=== PATIENT | male | born 1995 | race Asian ===

== ENCOUNTER 2017-01-02 09:14 | Inpatient (IN) | payer OTHER ==
[~2017-01-02] VITALS: Ht 167.6 cm; Wt 59.5 kg
[2017-01-02 10:01] LABS: MEAN CORPUSCULAR HEMOGLOBIN 27.7 pg (27.0-33.0); MEAN CORPUSCULAR HGB CONC 32.6 g/dl (32.0-36.5); MEAN CORPUSCULAR VOLUME 84.9 fl (80.0-96.0); RED CELL DISTRIBUTION WIDTH 13.3 % (11.5-14.5); WHITE BLOOD COUNT 5.6 K/mm3 (4.0-10.0)
[2017-01-02 10:41] LABS: ALBUMIN 4.2 GM/DL (3.2-5.2); ALKALINE PHOSPHATASE 64 U/L (45-117); ALT/SGPT 27 U/L (12-78); ANION GAP 9 MEQ/L (8-16); AST/SGOT 42 U/L (15-37); BILIRUBIN,DIRECT 0.3 MG/DL (0.0-0.2); BILIRUBIN,TOTAL 1.1 MG/DL (0.2-1.0); BLOOD UREA NITROGEN 13 MG/DL (7-18); CALCIUM LEVEL 8.9 MG/DL (8.5-10.1); CARBON DIOXIDE LEVEL 27 MEQ/L (21-32); CHLORIDE LEVEL 105 MEQ/L (98-107); CREATININE FOR GFR 1.04 MG/DL (0.70-1.30); GLUCOSE, FASTING 98 MG/DL (70-105); POTASSIUM SERUM 3.8 MEQ/L (3.5-5.1); SODIUM LEVEL 141 MEQ/L (136-145); TOTAL PROTEIN 7.7 GM/DL (6.4-8.2)
[2017-01-02 11:10] LABS: METHADONE URINE NEGATIVE (NEGATIVE)
[2017-01-02 17:59] VITALS: BP 114/77
[2017-01-02] MEDS ORDERED: MOM 30ML SUSPENSION UDC PO PRN (18:45)
[2017-01-02] MEDS ORDERED: MAALOX 30 ML SUSP *UDC PO PRN (18:45)
[2017-01-02] MEDS ORDERED: ACETAMINOPHEN TAB 650MG DOSE (2X325MG) PO PRN (18:45)
[2017-01-02] MEDS ORDERED: traZODone 50 MG TAB PO PRN (18:45)
[2017-01-03 06:55] VITALS: BP 119/77
--- NOTE | 2017-01-03 09:29 | HPEPDOC ---
Medical History and Physical Date of Admission January 02, 2017 at 16:50 History and Physical PCP: [facility] ATTENDING: Dr. Chon Patel HPI: 21yoM admitted to [facility] for unspecified depressive disorder, being medically examined today. No acute medical complaints today. Denies any fevers, chills, weakness, fatigue, WEBB, CP, SOB, cough, palpitations, abdominal pain, N/V /D or changes in bowel or bladder habits. PMHx: Depression PSHX: Denies SOCHX: Resides in: [place], from [place] Marital Status: Single Kids: None Employment: Active duty Tobacco use: Denies ETOH: Denies Illicit Drugs: Denies IV Drug Use: Denies Tattoos done unprofessionally: Denies FAMHX: Mother: Alive, unknown Father: Alive, unknown Siblings: 5 brothers, one sister Alive, well Children: None Unexpected deaths due to medical reasons: None. ROS: As noted in HPI, otherwise 11pt ROS of systems reviewed and unremarkable. PE: GEN: 21 yo M, appears stated age. Well-nourished, well developed. No acute distress. Alert and oriented x 3. Pleasant, interactive. HEENT: Normocephalic, atraumatic. Pupils are equal, round, and reactive to light. Extraocular movements are intact. No nystagmus appreciated. Sclera are nonicteric. Conjunctiva without injection. Nose midline. Nasal turbinates without bogginess. EACs both patent BL. TMs both visualized and bond with good cone of light, no bulging or erythema. No facial asymmetry. Moist mucous membranes. Dentition fair. Pharynx pink and moist, no cobblestoning. Neck supple , trachea midline. No lymphadenopathy or thyromegaly appreciated. CHEST: Regular rate and rhythm, +S1, +S2 LUNGS: Clear to auscultation bilaterally. No wheezes, rales, or rhonchi. Breathing appears symmetric and easy. Patient is speaking in full sentences. No accessory muscle use. ABD: Round, soft, non-tender, non-distended. +Bowel sounds throughout. No rebound or guarding. No costovertebral angle tenderness. EXT: Pulses 2+ bilaterally dorsalis pedis and radial. No lower extremity edema appreciated. SKIN: [place], dry, warm. Capillary refill <2sec. excoriation is noted left upper arm with scattered papules. No erythema. No drainage. NEURO: Alert and oriented x 3. Cranial nerves III-XII are intact. No focal deficits appreciated. EKG: Pending. A&P: 21yoM admitted to [facility] for unspecified depressive disorder 1. Psych. Plan per Psychiatry. Obtain baseline EKG to assure the safety of psychiatric medications as they can prolong the QT interval. 2. Elevated LFT. Recheck CMP. Check hepatitis profile. 3. Dermatitis left upper extremity. Patient states he had been applying Calamine. He had rash on the right upper extremity which is resolved. He states it is resolving on the left upper extremity as well. He declines any treatment at this time stating symptoms are resolving. 4. Follow up with PCP on discharge. 5. Staff member Chris present throughout exam. Vital Signs Vital Signs Date Time Temp Pulse Resp B/P (MAP) Pulse Ox O2 Delivery O2 Flow Rate FiO2 01/03/17 06:55 98.8 72 18 119/77 (91) 01/02/17 17:59 99 Room Air Laboratory Data Labs 24H Laboratory Tests 2 01/02/17 09:45: Urine Amphetamines Screen NEGATIVE, Urine Benzodiazepines Screen NEGATIVE, Urine Opiates Screen NEGATIVE, Urine Methadone Screen NEGATIVE, Urine Barbiturates Screen NEGATIVE, Urine Phencyclidine Screen NEGATIVE, Urine Cocaine Metabolite Screen NEGATIVE, Urine Cannabinoids Screen NEGATIVE 01/02/17 09:46: Anion Gap 9, Calcium Level 8.9, Aspartate Amino Transf (AST/SGOT) 42H, Alanine Aminotransferase (ALT/SGPT) 27, Alkaline Phosphatase 64, Total Bilirubin 1.1H, Direct Bilirubin 0.3H, Total Protein 7.7, Albumin 4.2, Albumin/Globulin Ratio 1.20, Thyroid Stimulating Hormone (TSH) 1.250, Salicylates Level < 1.7L, Acetaminophen Level < 2.0L, Ethyl Alcohol Level < 0.003 CBC/BMP Laboratory Tests 01/02/17 09:46 Red Blood Count 4.78, Mean Corpuscular Volume 84.9, Mean Corpuscular Hemoglobin 27.7, Mean Corpuscular Hemoglobin Concent 32.6, Red Cell Distribution Width 13.3 Home Medications No Active Prescriptions or Reported Meds Allergies Coded Allergies: No Known Allergies (Unverified , 01/02/17) Marzena Calle January 03, 2017 09:29
--- NOTE | 2017-01-03 13:08 | MHHPE ---
DATE OF ADMISSION: 01/02/2017 LEGAL STATUS AT ADMISSION: 9.39 legal status. CHIEF COMPLAINT: "I am afraid I can kill myself". 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 According to the records, the patient was texting his peers at [place] that he was having suicidal thoughts. They were concerned. The contacted the [facility] and he was brought for an evaluation. During his evaluation at the emergency department (ED), the patient was saying "It is hard to describe. It is one voice telling me to kill myself and another telling me not to". The patient was experiencing these auditory hallucinations and "conflicting thoughts". He stated that he has been feeling depressed with poor sleep, poor energy and suicidal ideation. He also stated during his ED admission that he completed his basic training in April and arrived to [place] in May. He said that he was experiencing symptoms of depression during basic training, but he felt better and now has been feeling worse for several days. He was unable to contract for safety and he was afraid he could end up harming himself. During the interview today in the unit, the patient repeats the above. The patient reports high stress, mostly having to do with "catching up with other people" and worried about his performance and what other people will think about him. The patient says that he gets along well with other peers and has no problem with the chain of command. He stated that he has been sleeping 3 to 5 hours a day and that he has not been able to fall asleep. He says that his energy fluctuates, but feels very tired for a few days. His appetite is good and he has normal self esteem. Exploring the above auditory hallucinations and suicidal thoughts and apparently that can be explained by the fact that the patient has been sleep deprived. The patient said that on these voices/strong thoughts were very strong. He had to play music to distract himself, but the voices/thoughts were coming back. He was very confused, afraid that he may lose control and end up killing himself so that is when he decided to text his friends and come to the emergency department. This is the first time that the patient has experienced such symptoms. The patient never had any psychiatric problems or treatment before. The patient denies any use of drugs or alcohol and says that very rarely he will drink a beer. When exploring his depression during basic training, the patient says that in the 14 weeks that lasted he felt down and home sick for four days and more or less in the middle of the basic training, but then he recovered. He said that he had some problems sleeping at that time, but nothing like it is now. PAST MEDICAL HISTORY: The patient denies any acute medical problems. No known drug allergies. PAST PSYCHIATRIC HISTORY: As above, the patient has no prior history or treatment. This is his first admission to an inpatient psychiatric facility. FAMILY HISTORY: The patient denies any family member having psychiatric problems or substance abuse. SUBSTANCE ABUSE HISTORY: The patient denies any current or past problems with drugs or alcohol. SOCIAL HISTORY: The patient was born and raised in [place] where his family is, his parents, four sisters and one brother. He was raised by them. He reports a completely normal happy childhood with no abuse or neglect. The patient reports school as completely normal. He had good grades. The patient had no problems making friends or socializing. He is the type of person that will have a few good friends. He finished high school and joined the [employer]. The patient reports that he likes it, that he is getting along well and has no problems with the chain of command. 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 REVIEW OF SYSTEMS: CONSTITUTIONAL: No weight loss, fevers, chills, weakness or fatigue. HEENT: No visual loss, blurry vision, double vision or yellow sclerae. No hearing loss, nasal congestion, runny nose or sore throat. SKIN: No rash or itching. CARDIOVASCULAR: No chest pain, chest pressure, chest discomfort, palpitations or edema. RESPIRATORY: No shortness of breath, cough or sputum. GI: No anorexia, nausea, vomiting or diarrhea. No abdominal pain. No blood. : No burning or pain on urination. NEUROLOGICAL: No headache, dizziness, syncope, paralysis, ataxia, numbness or tingling. MUSCULOSKELETAL: No muscle, back pain, joint pain or stiffness. HEMATOLOGIC: No anemia, bleeding or bruising. LYMPHATICS: No history of splenectomy. ENDOCRINOLOGIC: No reports of sweating, cold or heat intolerance. No polyuria or polydipsia. ALLERGIES: No history of asthma, hives, eczema or rhinitis. PHYSICAL EXAMINATION: As per physician conservation assistant. LABS AT ADMISSION: CBC is unremarkable except hemoglobin of 13.2 and hematocrit of 40.6. BMP is within normal limits except AST of 42. Urine drug screen (UDS) negative. Blood alcohol level is negative. MENTAL STATUS EXAMINATION: The patient is dressed in [facility]. The patient is calm and cooperative. His speech is soft and monotone. He has fair eye contact. Mood is anxious and depressed. Affect is restricted. The patient is oriented to time, place, person and situation. Maintains attention and concentration correctly. Instant recall, recent and remote memory are intact. Thought processes are coherent, logical and goal directed. The patient does not have auditory or visual hallucinations, although he reported auditory hallucinations during his evaluation at the ED. He does not have paranoid, persecutory, somatic, grandiose or jainism delusions. The patient is denying suicidal or homicidal ideation during the interview, but patient had suicidal thoughts and was afraid that he would end up harming himself before admission. Judgment and insight are limited. DIAGNOSES: [place] I: Adjustment disorder with depressed and anxious mood. Rule out major depressive disorder. [place] II: Deferred. [place] III: None acute. INITIAL TREATMENT PLAN: The patient was admitted on a 9.39 legal status. Complete history was obtained. With his permission, family will be contacted and database will be expanded. His medications regimen will be reviewed and changed accordingly. He will be provided with protected environment. He will be treated with individual, group and milieu therapy. He will also receive supportive psychoeducation. Discharge planning will commence immediately. Length of stay will be between 5-7 days. Outpatient followup will be strongly recommended. The treatment plan will focus initially on depression and risk for suicide.
--- NOTE | 2017-01-03 17:15 | ECGEPIP ---
Stationary ECG Study [facility] Test Date: 2017-01-03 Pat Name: MANOJ GAITAN Department: Room: [place] [address] Gender: M Adhesive Primer: MERRY : 1995 Requested By: Marzena Calle Order Number: [id number] Reading MD: Karina Moore Measurements Intervals [place] Rate: 44 P: 56 SC: 132 QRS: 89 QRSD: 86 T: 54 QT: 445 QTc: 384 Interpretive Statements SINUS BRADYCARDIA ST ELEVATION, PROBABLY EARLY REPOLARIZATION U WAVES NO PRIOR Electronically Signed On 01-03-2017 17:14:56 EDT by Karina Moore
[2017-01-03 18:12] VITALS: BP 108/68
[2017-01-04 06:04] VITALS: BP 113/74
[2017-01-04 07:24] LABS: ALBUMIN 3.8 GM/DL (3.2-5.2); ALBUMIN/GLOBULIN RATIO 1.12 (1.00-1.93); ALKALINE PHOSPHATASE 65 U/L (45-117); ALT/SGPT 21 U/L (12-78); ANION GAP 5 MEQ/L (8-16); AST/SGOT 17 U/L (15-37); BILIRUBIN,TOTAL 0.7 MG/DL (0.2-1.0); BLOOD UREA NITROGEN 12 MG/DL (7-18); CALCIUM LEVEL 8.7 MG/DL (8.5-10.1); CARBON DIOXIDE LEVEL 32 MEQ/L (21-32); CHLORIDE LEVEL 103 MEQ/L (98-107); CREATININE FOR GFR 1.02 MG/DL (0.70-1.30); GLUCOSE, FASTING 92 MG/DL (70-105); SODIUM LEVEL 140 MEQ/L (136-145); TOTAL PROTEIN 7.2 GM/DL (6.4-8.2)
[2017-01-04 07:43] LABS: POTASSIUM SERUM 4.9 MEQ/L (3.5-5.1)
[2017-01-04 14:59] LABS: TOTAL IRON BINDING CAPACITY 295 UG/DL (250-450)
[2017-01-04 18:12] VITALS: BP 108/59
--- NOTE | 2017-01-04 22:23 | MHIPNPDOC ---
[facility] Progress Note Progress Note DATE OF SERVICE: 01/04/17 INTERVAL HISTORY: Medication Side effects: reports no side effects from the trazodone Behavior/events: has been social with other patients, ramey noted times be somewhat reclusive. Group Attendance: has attended groups intermittently Psychiatric Symptoms: reports his sleep has been improved as well as his mood since being admitted. He describes that his anxiety and depression have improved as well with the treatment of his sleeping problems. He has no complaints today. VITAL SIGNS: See below. NEW TEST RESULTS: See below CURRENT MEDICATIONS: See below. MENTAL STATUS EXAMINATION: General: Well dressed with good hygiene Speech: Spontaneous and fluid Thought processes: Linear and logical Thought content: future orientated Abstract reasoning, and computation: Intact Description of associations: Intact Description of abnormal or psychotic thoughts:Denies any suicidal or homicidal ideation. Denies any auditory or visual hallucinations. Does not appear to be responding to internal stimuli. Does not appear to be endorsing any bizarre or paranoid ideation. Judgment: fair [place] #HT: poor Orientation: Alert and orientated 3 Recent and remote memory: Intact Attention span and concentration: Intact Fund of knowledge: Adequate Mood: "fine" Affect: mildly dysthymic with a constricted range DIAGNOSES: 1. Unspecified depressive disorder. 2. Insomnia. ASSESSMENT: improving MANAGEMENT PLAN: Medications: continue trazodone at this time the patient is not interested in trying any anti-depressants Psychotherapy: encouraged group therapy Social: none Misc: none Disposition: The patient will need of further inpatient stay to address medication titration and disposition needs. TIME SPENT: 15 minutes. Vital Signs Vital Signs Date Time Temp Pulse Resp B/P (MAP) Pulse Ox O2 Delivery O2 Flow Rate FiO2 01/04/17 18:12 98.8 66 16 108/59 (75) 01/04/17 06:04 Room Air 01/02/17 17:59 99 Laboratory Data 24H Labs Laboratory Tests 2 01/04/17 06:18: Anion Gap 5L, Blood Urea Nitrogen 12, Creatinine 1.02, Sodium Level 140, Potassium Level 4.9#, Chloride Level 103, Carbon Dioxide Level 32, Calcium Level 8.7, Aspartate Amino Transf (AST/SGOT) 17, Alanine Aminotransferase (ALT/ SGPT) 21, Alkaline Phosphatase 65, Total Bilirubin 0.7, Total Protein 7.2, Albumin 3.8, Iron Level 56L, Total Iron Binding Capacity 295, Transferrin % Saturation 19.0L, Albumin/Globulin Ratio 1.12 CBC/BMP Laboratory Tests 01/04/17 06:18 Calcium Level 8.7, Aspartate Amino Transf (AST/SGOT) 17, Alanine Aminotransferase (ALT/SGPT) 21, Alkaline Phosphatase 65, Total Bilirubin 0.7, Total Protein 7.2, Albumin 3.8 Current Medications Current Medications Acetaminophen (Tylenol Tab) 650 mg Q6HP PRN PO HEADACHE or DISCOMFORT; Start at 18:45; Stop 02/01/17 at 18:44 Al Hydrox/Mg Hydrox/Simethicone (Mylanta) 30 ml Q4HP PRN PO HEARTBURN/ INDIGESTION; Start 01/02/17 at 18:45; Stop 02/01/17 at 18:44 Home Med (Med Rec Complete!) ASDIRECTED XX ; Start 01/02/17 at 17:15; Stop at 17:15; Status DC Magnesium Hydroxide (Milk Of Magnesia) 30 ml DAILYPRN PRN PO CONSTIPATION; Start 01/02/17 at 18:45; Stop 02/01/17 at 18:44 Trazodone HCl (Desyrel) 50 mg QHSP PRN PO INSOMNIA; Start 01/02/17 at 18:45; Stop 02/01/17 at 18:44 Allergies Coded Allergies: No Known Allergies (Unverified , 01/02/17) GME ATTESTATION My preceptor for this patient encounter was physically present in the building during the encounter and was fully available. As needed, all aspects of the patient interview, examination, medical decision making process, and medical care plan development were reviewed and approved by the preceptor. Preceptor is aware and concurs with the plan as stated in the body of this note and will attest to such by his/her cosignature. TANGELA KENT DO January 04, 2017 22:23
[2017-01-05 06:17] VITALS: BP 113/64
[2017-01-05 18:00] VITALS: BP 105/60
[2017-01-06 06:28] VITALS: BP 116/58
[2017-01-06] MEDS: DOCUSATE SODIUM 100 MG CAP PO SCH (09:05)
[2017-01-06] MEDS: FERROUS SULFATE 325MG TAB PO SCH (09:05)
--- NOTE | 2017-01-06 15:42 | IPN ---
DATE: 01/06/2017 21-year-old male admitted for depression and suicidal ideation. SUBJECTIVE: "I am feeling a lot better." OBJECTIVE: The patient is significantly improved. The patient is no longer experiencing auditory hallucinations/strong thoughts. The patient is able to contract for safety. Has been interacting well with other peers and staff. The patient is sleeping well without the need of medication. MENTAL STATUS EXAM: The patient is dressed in [facility]. The patient is calm and cooperative. Speech is clear, coherent, with normal rate and is spontaneous. Has good eye contact. Mood is euthymic. Affect is congruent with mood. No evidence of delusions or hallucinations. Memory, attention and concentration are fair. The patient denies suicidal or homicidal ideation. Insight and judgment is fair. ASSESSMENT: Adjustment disorder with anxious and depressed mood. PLAN: The patient has improved significantly since admission. The patient is not taking medications. Discharge planning has started. Will schedule a chain of command meeting for tomorrow and discharge after the chain of command meeting.
[2017-01-06 18:00] VITALS: BP 129/58
[2017-01-06] MEDS ORDERED: traZODone 25MG PER 1/2 TABLET PO SCH (21:00)
[2017-01-07 06:46] VITALS: BP 104/59
[2017-01-07] MEDS: DOCUSATE SODIUM 100 MG CAP PO SCH (08:42)
[2017-01-07] MEDS: FERROUS SULFATE 325MG TAB PO SCH (08:42)
[2017-01-07] MEDS ORDERED: TRAZ25TA GT (09:08)
--- NOTE | 2017-01-08 06:04 | MHDS ---
DATE OF ADMISSION: 01/02/2017 DATE OF DISCHARGE: 01/07/2017 LEGAL STATUS AT ADMISSION: 939 legal status. 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 According to the records, the patient was texting his peers at [place] and telling them he was having suicidal thoughts. They were concerned. They contacted the police (MPs) and he was brought for an evaluation. During his evaluation at the emergency department (ED), the patient was saying "It is hard to describe. It is one voice telling me to kill myself and another telling me not to." The patient was experiencing these auditory hallucinations/"conflicting thoughts". He stated that he has been feeling depressed with poor sleep, poor energy and suicidal thoughts. He also stated during his ED admission that he completed his basic training in April and he arrived to [place] in May. He said that he was experiencing symptoms of depression during basic training, but he felt better and now, he seems to feel worse for several days. He was unable to contract for safety and he was afraid he could end up harming himself. During the interview today, the patient repeated the above. The patient reports high stress, mostly having to do with "catching up with other people" and worried about his performance and what other people will think about him. The patient says that he gets along well with other peers and has no problem with the chain of command. He stated that he has been sleeping 3-5 hours a night and that has not been able to fall asleep. He says that his energy fluctuates, feels very tired. His appetite is good. His self esteem is normal. Exploring the above auditory hallucinations and suicidal thoughts, it appears that could be related to sleep deprivation. The patient said that on these voices were strong, but he is not sure if there were two voices or strong thoughts. He was very confused, afraid that he may lose control and end up killing himself, so that is when he decided to text his friends and come to the ED. This is the first time that he has experienced such symptoms. The patient never had any psychiatric problems in the past. The patient denies any use of drugs or alcohol. When exploring his depression during basic training, the patient says that in 14 weeks that they lasted, he felt down and home sick for four days around the middle of the basic training, but then he recovered. He said that he had some problems sleeping at that time, but nothing like it is now. LABS AT ADMISSION: CBC showed a hemoglobin of 13.2 and hematocrit of 40.6, the rest within normal limits. CMP was unremarkable except total bilirubin of 1.1 and AST of 42. His Urine drug screen (UDS) negative. Blood alcohol level is negative. HOSPITAL COURSE: After the first evaluation, and given the fact that his symptoms are probably compatible with sleep deprivation. It was decided to observe the patient and only start trazodone 25 mg at bedtime for insomnia. He did not have to take the medication because he was sleeping fine. He felt that his mood was stable. He was able to sleep. His appetite was good. He was interacting with the patients well. He was able to smile. There was no evidence of psychomotor retardation. His affect was bright, so he felt he could return home by 01/07/2017. No evidence of auditory or visual hallucinations, delusions, suicidal or homicidal ideations. MENTAL STATUS EXAMINATION: The patient is dressed in casual clothes. The patient is calm and cooperative. The patient's speech is clear, coherent with normal rate and spontaneous. Has good eye contact. Mood is euthymic. Affect is appropriate and congruent with mood. The patient is oriented to time, place, person and situation. Maintains attention and concentration correctly. Instant recall, recent and remote memory are intact. Thought processes are coherent, logical and goal directed. The patient does not have auditory or visual hallucinations. The patient does not have paranoid, persecutory, somatic, grandiose or uatsdin delusions. The patient is denying suicidal or homicidal ideation. Judgment and insight are fair. DISCHARGE DIAGNOSES: [place] I: Adjustment disorder with depressed and anxious mood. Insomnia. [place] II: Deferred. [place] III: None acute. INSTRUCTIONS TO THE PATIENT: The patient is to continue taking his medication as prescribed and followup appointments. He is advised to maintain absolute sobriety from drugs and alcohol. The patient has scheduled appointment for psychotropic medication management, individual psychotherapy and primary care physician.
== END 2017-01-07 10:37 | disposition home or self-care (01) | DRG 882 ==
LOC: M ED 10:01 → M ED INP 16:50 → M PSY 17:57
PROVIDERS: ADMIT Psychiatry & Neurology Psychiatry; ATTEND Psychiatry & Neurology Psychiatry
DX: F43.23 Adjustment disorder with mixed anxiety and depressed mood (principal); G47.00 Insomnia, unspecified

== ENCOUNTER 2017-04-23 22:37 | Emergency (ER) | payer OTHER ==
[~2017-04-23] VITALS: Ht 167.6 cm; Wt 69.9 kg
[~2017-04-23 22:37] MED LIST: TRAZ25TA GT
--- NOTE | 2017-04-23 23:50 | REPUSA ---
Clinical history: Pain. Findings: Real-time ultrasound imaging of the testicles and scrotum was performed. The right testicle measures 3.8 x 2.4 x 2.4 cm. The left testicle measures 3.5 x 2.4 x 2.5 cm. The testicles demonstrat e normal echo texture and echogenicity. Small bilateral epididymal cysts are noted, measuring up to 6 mm. Normal color Doppler flow and arterial waveforms are seen bilaterally. There are trace bilateral hydroceles. Diffuse thickening and edema of the scrotal wall is noted. Impression: 1. Unremarkable ultrasound examination of the testicles. 2. Bilateral epididymal cyst. 3. Trace bilateral hydroceles. 4. Extensive diffuse thickening and edema of the scrotal wall bilaterally. This is a nonspecific find ing, but could be secondary to inflammatory changes. Follow-up is recommended as clinically indicated .
[2017-04-24 00:30] VITALS: BP 114/67
== END 2017-04-24 00:41 | disposition home or self-care (01) ==
LOC: M ED 22:37
DX: N50.89 Other specified disorders of the male genital organs (principal); Z79.899 Other long term (current) drug therapy; F17.210 Nicotine dependence, cigarettes, uncomplicated

== ENCOUNTER 2017-04-27 14:13 | Inpatient (IN) | payer OTHER ==
[~2017-04-27] VITALS: Ht 167.6 cm; Wt 72.0 kg
--- NOTE | 2017-04-27 16:19 | REP ---
Clinical: Chest pain. Edema . Comparison: None . Technique: PA and lateral. Findings: The mediastinum and cardiac silhouette are normal. The lung fu are clear and without acute consolidation, effusion, or pneumothorax. The skeletal structures are intact and normal. Impression: 1. No acute cardiopulmonary process. Signed by Chintan Fonseca MD 04/27/2017 04:10 P
[2017-04-27 16:24] LABS: BASO % 0.6 % (0.0-1.0); EOS # 0.1 K/mm3 (0.0-0.50); EOS % 1.5 % (0.0-3.0); LARGE UNSTAINED CELL # 0.1 K/mm3 (0.0-0.4); LARGE UNSTAINED CELL % 1.9 % (0.0-4.0); LYMPH # 2.6 K/mm3 (1.5-6.5); LYMPH % 33.2 % (24.0-44.0); MEAN CORPUSCULAR HEMOGLOBIN 27.8 pg (27.0-33.0); MEAN CORPUSCULAR HGB CONC 31.9 g/dl (32.0-36.5); MEAN CORPUSCULAR VOLUME 87.2 fl (80.0-96.0); MONO # 0.3 K/mm3 (0.0-0.8); MONO % 3.9 % (0.0-5.0); NEUTROPHILS # 4.3 K/mm3 (1.8-7.7); NEUTROPHILS % 58.8 % (36.0-66.0); PLATELET COUNT, AUTOMATED 325 k/mm3 (150-450); RED CELL DISTRIBUTION WIDTH 13.4 % (11.5-14.5); WHITE BLOOD COUNT 7.3 K/mm3 (4.0-10.0)
[2017-04-27 16:40] LABS: ERYTHROCYTE SEDIMENTATION RATE 23 mm/hr (0-15)
[2017-04-27 16:47] LABS: ALBUMIN 0.7 GM/DL (3.2-5.2); ALBUMIN/GLOBULIN RATIO 0.18 (1.00-1.93); ALKALINE PHOSPHATASE 66 U/L (45-117); ALT/SGPT 26 U/L (12-78); ANION GAP 5 MEQ/L (8-16); AST/SGOT 38 U/L (15-37); BILIRUBIN,TOTAL 0.2 MG/DL (0.2-1.0); BLOOD UREA NITROGEN 17 MG/DL (7-18); CALCIUM LEVEL 7.7 MG/DL (8.5-10.1); CARBON DIOXIDE LEVEL 32 MEQ/L (21-32); CHLORIDE LEVEL 106 MEQ/L (98-107); CREATININE FOR GFR 1.19 MG/DL (0.70-1.30); GLUCOSE, FASTING 89 MG/DL (70-105); POTASSIUM SERUM 3.8 MEQ/L (3.5-5.1); SODIUM LEVEL 143 MEQ/L (136-145); TOTAL PROTEIN 4.7 GM/DL (6.4-8.2)
[2017-04-27] MEDS ORDERED: ISOVUE-370 76% 100ML VIAL (Q9967) As Ordered ONE (17:21)
[2017-04-27 17:41] LABS: INR 0.94
--- NOTE | 2017-04-27 17:55 | REP ---
Clinical: Edema and hypoalbuminemia. Technique: Axial contrast enhanced images from the lung bases to the pubic symphysis using 100 ml Isovue 370 intravenous contrast material with coronal and sagittal re-formations. Findings: Lung bases demonstrate small left pleural effusion. Mild to moderate diffuse subcutaneous edema is noted throughout the abdomen and pelvis as well as small to moderate amount of ascites extending to the pelvis. Liver, spleen, pancreas, gallbladder, bilateral adrenal glands and kidneys are normal. The enteric system is without obstruction or acute inflammatory process. Mural edematous changes through the ascending and transverse colon is also consistent with a history of hypoalbuminemia and less likely reflects colitis although correlation may be warranted. Abdominal aorta and vasculature appears normal. No free air. No significant adenopathy. Musculoskeletal structures are intact. Impression: 1. Moderate ascites, small left pleural effusion, and my up to moderate anasarca as well as mural edema to the colon is consistent with a history of hypoalbuminemia. 2. No further acute abdominopelvic pathology is identified. Signed by Chintan Fonseca MD 04/27/2017 05:46 P
--- NOTE | 2017-04-27 18:27 | ECGEPIP ---
Stationary ECG Study [facility] - ED Test Date: 2017-04-27 Pat Name: MANOJ GAITAN Department: Room: - Gender: M Director Of Curriculum: percy : 1995 Requested By: SHAWN Ny PA-C Order Number: [id number] Reading MD: Romina Dixon Measurements Intervals [place] Rate: 57 P: 46 AR: 145 QRS: 93 QRSD: 88 T: 52 QT: 411 QTc: 401 Interpretive Statements SINUS BRADYCARDIA BORDERLINE RIGHT AXIS DEVIATION NONSPECIFIC ST ELEVATION, EARLY REPOLARIZATION INCREASED RATE 01/03/17 Electronically Signed On 04-27-2017 18:27:21 EDT by Romina Dxion
[2017-04-27] MEDS ORDERED: ACETAMINOPHEN TAB 650MG DOSE (2X325MG) PO PRN (20:00)
[2017-04-27] MEDS ORDERED: ONDANSETRON 4MG/2ML VIAL (J2405) IV PRN (20:00)
[2017-04-27 20:54] LABS: CHOLESTEROL LEVEL 570 MG/DL (<200); COMPLEMENT C3 152 MG/DL (90-180); TRIGLYCERIDES LEVEL 327 MG/DL (<150)
[2017-04-27] MEDS: FUROSEMIDE 20 MG/2 ML VIAL (J1940) IV SCH (20:56)
[2017-04-27] MEDS ORDERED: ENOXAPARIN 40 MG/0.4 ML SYRINGE (J1650) SC SCH (21:00)
--- NOTE | 2017-04-27 22:25 | HPEPDOC ---
Medical History and Physical Date of Admission 04/27/17 History and Physical PRIMARY CARE PROVIDER: [facility] ATTENDING: Dr. Farida Little CHIEF COMPLAINT: Swollen extremities HISTORY OF PRESENT ILLNESS: This is a 21-year-old male past medical history who presents complaining of swollen extremities. Patient states that he developed diarrhea on Friday through Friday, after which his genitalia started to become swollen on Friday, and has swelling progressed his legs on night. Patient denies any fevers or chills. No nausea/vomiting/abdominal pain. His diarrhea has subsided. He denies any cough/ sore throat/sick contacts/recent travels. The patient is sexually active with one partner over the long period of time. He denies any history of STDs. No history of hepatitis or HIV. Patient denies any chest pain/shortness of breath/palpitations. He is currently resting comfortably in bed. He also noted his genitalia becoming more edematous as well as his abdomen, and now his upper extremities. His genitalia are nontender. No dysuria or hematuria. PAST MEDICAL HISTORY: As per HPI PAST SURGICAL HISTORY: Tonsillectomy SOCIAL HISTORY: Smokes 1-2 cigarettes per week, denies alcohol or illicit drug use. FAMILY HISTORY: Denies family history of kidney disease/autoimmune disease. ALLERGIES: Please see below. REVIEW OF SYSTEMS: HEENT: Denies sore throat/headache CARDIOVASCULAR: Denies chest pain/palpitations RESPIRATORY: Denies shortness of breath/cough GASTROINTESTINAL: denies nausea/vomiting GENITOURINARY: Denies dysuria/urinary urgency. MUSCULOSKELETAL: Denies myalgias/arthralgias NEUROLOGICAL: Denies any focal weakness HOME MEDICATIONS: Please see below. PHYSICAL EXAMINATION: Vitals: (see below) General: No acute distress, laying comfortably in bed. HEENT: Moist mucous membranes. Neck: No JVD or lymphadenopathy Cardiac: RRR, No murmurs Pulm: Clear to auscultation b/l. No wheezing, rhonchi Abd: NT/ND + BS. Full appearing. Ext: 2+ pitting edema bilateral lower extremities. No cyanosis. Distal pulses intact. Genitalia edematous however nontender. No erythema. No fluctuance. LABORATORY DATA: See below. IMAGING: Chest x-ray on 04/27/17 with no acute pulmonary disease. CT abdomen and pelvis on 04/27/17 Impression: 1. Moderate ascites, small left pleural effusion, and my up to moderate anasarca as well as mural edema to the colon is consistent with a history of hypoalbuminemia. 2. No further acute abdominopelvic pathology is identified. MICROBIOLOGY: Please see below. ASSESSMENT/PLAN: 1. Nephrotic syndrome- ? Secondary to IgA nephropathy versus minimal change disease. We'll also start with workup to rule out autoimmune/hepatitis/HIV. SPEP and UPEP, RPR, cryoglobulin. UA with 3+ protein. Anasarca. Albumin 0.7. Lasix IV twice a day. ? Need for kidney biopsy. Nephrology consulted. 2. Anasarca- likely secondary to nephrotic syndrome. High risk for hypercoagulable state. Will rule out DVT with a Doppler ultrasound. 3. Hyperlipidemia- likely secondary to nephrotic syndrome. We'll start patient on statin. 4. Tobacco abuse- cessation counseling Due to prophylaxis- enoxaparin Patient was followed by Dr. Farida Little starting 04/28/17 at 7 AM. Vital Signs Vital Signs Date Time Temp Pulse Resp B/P (MAP) Pulse Ox O2 Delivery O2 Flow Rate FiO2 04/27/17 20:03 97.9 56 16 109/66 (80) 99 Room Air Laboratory Data Labs 24H Laboratory Tests 2 04/27/17 16:06: Prothrombin Time 12.7, Prothromb Time International Ratio 0.94, Activated Partial Thromboplast Time 39.0H, Estimated Mean Plasma Glucose 114H, Hemoglobin A1c 5.6 04/27/17 16:10: White Blood Count 7.3, Red Blood Count 5.88, Hemoglobin 16.3, Hematocrit 51.3, Mean Corpuscular Volume 87.2, Mean Corpuscular Hemoglobin 27.8, Mean Corpuscular Hemoglobin Concent 31.9L, Red Cell Distribution Width 13.4, Platelet Count 325, Neutrophils (%) (Auto) 58.8, Lymphocytes (%) (Auto) 33.2, Monocytes (%) (Auto) 3.9, Eosinophils (%) (Auto) 1.5, Basophils (%) (Auto) 0.6, Neutrophils # (Auto) 4.3, Lymphocytes # (Auto) 2.6, Monocytes # (Auto) 0.3, Eosinophils # (Auto) 0.1, Basophils # (Auto) 0.0, Large Unclassified Cells % 1.9 , Large Unclassified Cells # 0.1, Erythrocyte Sedimentation Rate 23H, Anion Gap 5L, Blood Urea Nitrogen 17, Creatinine 1.19, Sodium Level 143, Potassium Level 3.8, Chloride Level 106, Carbon Dioxide Level 32, Calcium Level 7.7L, Aspartate Amino Transf (AST/SGOT) 38H, Alanine Aminotransferase (ALT/SGPT) 26, Total Creatine Kinase 223, Alkaline Phosphatase 66, Total Bilirubin 0.2, Triglycerides Level 327H, LDL Cholesterol 411.6H, Total Protein 4.7L, Albumin 0.7L, C-Reactive Protein, Quantitative < 0.30, B-Type Natriuretic Peptide 8.3, Albumin/Globulin Ratio 0.18L, Total Cholesterol 570H, Non-HDL Cholesterol (LDL + VLDL) 477, Total HDL Cholesterol 93, Cholesterol/HDL Ratio 6.129H, Lipase 151 , Complement C3 152, Complement C4 38.0 04/27/17 17:36: Urine Appearance HAZY, Urine Color YELLOW, Urine pH 6.0, Urine Specific [place] 1.040, Urine Protein 3+H, Urine Glucose (UA) NEGATIVE, Urine Ketones NEGATIVE, Urine Urobilinogen 0.2, Urine Bilirubin NEGATIVE, Urine Leukocyte Esterase NEGATIVE, Urine Blood 1+H, Urine Nitrite NEGATIVE, Urine WBC (Auto) 6H, Urine RBC (Auto) 6H, Urine Hyaline Casts (Auto) 3, Urine Bacteria (Auto) NEGATIVE, Urine Squamous Epithelial Cells 0, Urine Mucus (Auto) MODERATE, Urine Sperm ( Auto) 04/27/17 21:03: CBC/BMP Laboratory Tests 04/27/17 16:10 Red Blood Count 5.88, Mean Corpuscular Volume 87.2, Mean Corpuscular Hemoglobin 27.8, Mean Corpuscular Hemoglobin Concent 31.9 L, Red Cell Distribution Width 13.4, Neutrophils (%) (Auto) 58.8, Lymphocytes (%) (Auto) 33.2, Monocytes (%) ( Auto) 3.9, Eosinophils (%) (Auto) 1.5, Basophils (%) (Auto) 0.6, Neutrophils # ( Auto) 4.3, Lymphocytes # (Auto) 2.6, Monocytes # (Auto) 0.3, Eosinophils # (Auto ) 0.1, Basophils # (Auto) 0.0, Calcium Level 7.7 L, Aspartate Amino Transf (AST/ SGOT) 38 H, Alanine Aminotransferase (ALT/SGPT) 26, Total Creatine Kinase 223, Alkaline Phosphatase 66, Total Bilirubin 0.2, Triglycerides Level 327 H, LDL Cholesterol 411.6 H, Total Protein 4.7 L, Albumin 0.7 L Home Medications No Active Prescriptions or Reported Meds Allergies Coded Allergies: No Known Allergies (Unverified , 04/27/17) BOGDAN GORDON MD Apr 27, 2017 22:25
[2017-04-27] MEDS ORDERED: ATORVASTATIN 20 MG TAB PO ONE (23:00)
[2017-04-28] VITALS: BP 106/67
--- NOTE | 2017-04-28 00:10 | REPUSA ---
CLINICAL HISTORY: Edema. COMMENTS: Real time sonography with duplex doppler of the extremities bilaterally was performed with attention to the major deep venous structures. Evaluation reveals the common femoral, superficial femoral and popliteal veins bilaterally to be comp letely compressible without intraluminal thrombus. There is normal spontaneous phasic flow and augmen tation in all deep veins. The greater saphenous/common femoral vein junctions are patent bilaterally. Soft tissue edema and swelling. IMPRESSION: No evidence of DVT in the lower extremities bilaterally. Thank you for your kind referral of this patient.
[2017-04-28 02:00] VITALS: BP 100/65
[2017-04-28 04:00] VITALS: BP 104/64
[2017-04-28 05:42] LABS: BASO % 0.8 % (0.0-1.0); EOS # 0.1 K/mm3 (0.0-0.50); EOS % 1.7 % (0.0-3.0); LARGE UNSTAINED CELL # 0.1 K/mm3 (0.0-0.4); LARGE UNSTAINED CELL % 2.2 % (0.0-4.0); LYMPH # 2.9 K/mm3 (1.5-6.5); LYMPH % 50.7 % (24.0-44.0); MEAN CORPUSCULAR HEMOGLOBIN 27.4 pg (27.0-33.0); MEAN CORPUSCULAR HGB CONC 31.5 g/dl (32.0-36.5); MEAN CORPUSCULAR VOLUME 86.8 fl (80.0-96.0); MONO # 0.3 K/mm3 (0.0-0.8); NEUTROPHILS # 2.1 K/mm3 (1.8-7.7); NEUTROPHILS % 38.5 % (36.0-66.0); PLATELET COUNT, AUTOMATED 282 k/mm3 (150-450); RED CELL DISTRIBUTION WIDTH 13.5 % (11.5-14.5); WHITE BLOOD COUNT 5.6 K/mm3 (4.0-10.0)
[2017-04-28 08:00] VITALS: BP 93/53
[2017-04-28] MEDS: FUROSEMIDE 20 MG/2 ML VIAL (J1940) IV SCH (08:42)
[2017-04-28] MEDS: ATORVASTATIN 20 MG TAB PO SCH (08:42)
--- NOTE | 2017-04-28 09:43 | IPNPDOC ---
Subjective Date Seen The patient was seen on 04/28/17. Subjective Chief Complaint/HPI The patient is a 21-year-old male admitted with a reason for visit of Nephrotic Syndrome. Events since last encounter does not offer any complaints this am expect for generalized swelling , no sob or cough , no chest pain , no abdominal pain , nausea to vomiting or diarrhea. Objective Physical Examination General Exam: Positive: Alert, Cooperative, No Acute Distress Eye Exam: Positive: PERRLA, Conjunctiva & lids normal, EOMI, Negative: Sclera icteric ENT Exam: Positive: Atraumatic, Mucous membr. moist/pink, Pharynx Normal Neck Exam: Negative: Supple, JVD, thyromegaly, +2 carotid pulse wo bruit, Lymphadenopathy, Other Chest Exam: Positive: Clear to auscultation, Normal air movement Heart Exam: Positive: Rate Normal, Regular Rhythm, Normal S1, Normal S2, Negative: Murmurs, Rubs Abdomen Exam: Positive: Normal bowel sounds, Soft, Negative: Tenderness, Hepatospenomegaly Male Exam: Positive: Edema (scrotal) Extremity Exam: Positive: Edema, Normal pulses, Negative: Clubbing, Cyanosis Skin Exam: Positive: Nl turgor and temperature, Negative: Rash, Breakdown Assessment /Plan Problems (1) Anasarca Status: Acute Problem Text: patient is being worked up for nephrotic syndrome complements normal. some serologies have been ordered to be seen by nephrology Plan/VTE VTE Prophylaxis Ordered?: Yes VS, I&O, 24H, Fishbone Vital Signs/I&O Vital Signs Date Time Temp Pulse Resp B/P (MAP) Pulse Ox O2 Delivery O2 Flow Rate FiO2 04/28/17 08:00 97.1 53 16 93/53 (66) 100 Room Air I&O- Last 24 Hours up to 6 AM 04/28/17 06:00 Output Total 450 ml Balance -450 ml Laboratory Data 24H LABS Laboratory Tests 2 04/27/17 16:06: Prothrombin Time 12.7, Prothromb Time International Ratio 0.94, Activated Partial Thromboplast Time 39.0H, Estimated Mean Plasma Glucose 114H, Hemoglobin A1c 5.6 04/27/17 16:10: White Blood Count 7.3, Red Blood Count 5.88, Hemoglobin 16.3, Hematocrit 51.3, Mean Corpuscular Volume 87.2, Mean Corpuscular Hemoglobin 27.8, Mean Corpuscular Hemoglobin Concent 31.9L, Red Cell Distribution Width 13.4, Platelet Count 325, Neutrophils (%) (Auto) 58.8, Lymphocytes (%) (Auto) 33.2, Monocytes (%) (Auto) 3.9, Eosinophils (%) (Auto) 1.5, Basophils (%) (Auto) 0.6, Neutrophils # (Auto) 4.3, Lymphocytes # (Auto) 2.6, Monocytes # (Auto) 0.3, Eosinophils # (Auto) 0.1, Basophils # (Auto) 0.0, Large Unclassified Cells % 1.9 , Large Unclassified Cells # 0.1, Erythrocyte Sedimentation Rate 23H, Anion Gap 5L, Blood Urea Nitrogen 17, Creatinine 1.19, Sodium Level 143, Potassium Level 3.8, Chloride Level 106, Carbon Dioxide Level 32, Calcium Level 7.7L, Aspartate Amino Transf (AST/SGOT) 38H, Alanine Aminotransferase (ALT/SGPT) 26, Total Creatine Kinase 223, Alkaline Phosphatase 66, Total Bilirubin 0.2, Triglycerides Level 327H, LDL Cholesterol 411.6H, Total Protein 4.7L, Albumin 0.7L, C-Reactive Protein, Quantitative < 0.30, B-Type Natriuretic Peptide 8.3, Albumin/Globulin Ratio 0.18L, Total Cholesterol 570H, Non-HDL Cholesterol (LDL + VLDL) 477, Total HDL Cholesterol 93, Cholesterol/HDL Ratio 6.129H, Lipase 151 , Complement C3 152, Complement C4 38.0 04/27/17 17:36: Urine Appearance HAZY, Urine Color YELLOW, Urine pH 6.0, Urine Specific [place] 1.040, Urine Protein 3+H, Urine Glucose (UA) NEGATIVE, Urine Ketones NEGATIVE, Urine Urobilinogen 0.2, Urine Bilirubin NEGATIVE, Urine Leukocyte Esterase NEGATIVE, Urine Blood 1+H, Urine Nitrite NEGATIVE, Urine WBC (Auto) 6H, Urine RBC (Auto) 6H, Urine Hyaline Casts (Auto) 3, Urine Bacteria (Auto) NEGATIVE, Urine Squamous Epithelial Cells 0, Urine Mucus (Auto) MODERATE, Urine Sperm ( Auto) 04/27/17 21:03: 04/28/17 04:59: White Blood Count 5.6, Red Blood Count 5.38, Hemoglobin 14.7, Hematocrit 46.7, Mean Corpuscular Volume 86.8, Mean Corpuscular Hemoglobin 27.4, Mean Corpuscular Hemoglobin Concent 31.5L, Red Cell Distribution Width 13.5, Platelet Count 282, Neutrophils (%) (Auto) 38.5, Lymphocytes (%) (Auto) 50.7H, Monocytes (%) (Auto) 6.0H, Eosinophils (%) (Auto) 1.7, Basophils (%) (Auto) 0.8 , Neutrophils # (Auto) 2.1, Lymphocytes # (Auto) 2.9, Monocytes # (Auto) 0.3, Eosinophils # (Auto) 0.1, Basophils # (Auto) 0.0, Large Unclassified Cells % 2.2 , Large Unclassified Cells # 0.1 CBC/BMP Laboratory Tests 04/27/17 16:10 Red Blood Count 5.88, Mean Corpuscular Volume 87.2, Mean Corpuscular Hemoglobin 27.8, Mean Corpuscular Hemoglobin Concent 31.9 L, Red Cell Distribution Width 13.4, Neutrophils (%) (Auto) 58.8, Lymphocytes (%) (Auto) 33.2, Monocytes (%) ( Auto) 3.9, Eosinophils (%) (Auto) 1.5, Basophils (%) (Auto) 0.6, Neutrophils # ( Auto) 4.3, Lymphocytes # (Auto) 2.6, Monocytes # (Auto) 0.3, Eosinophils # (Auto ) 0.1, Basophils # (Auto) 0.0, Calcium Level 7.7 L, Aspartate Amino Transf (AST/ SGOT) 38 H, Alanine Aminotransferase (ALT/SGPT) 26, Total Creatine Kinase 223, Alkaline Phosphatase 66, Total Bilirubin 0.2, Triglycerides Level 327 H, LDL Cholesterol 411.6 H, Total Protein 4.7 L, Albumin 0.7 L 04/28/17 04:59 Red Blood Count 5.38, Mean Corpuscular Volume 86.8, Mean Corpuscular Hemoglobin 27.4, Mean Corpuscular Hemoglobin Concent 31.5 L, Red Cell Distribution Width 13.5, Neutrophils (%) (Auto) 38.5, Lymphocytes (%) (Auto) 50.7 H, Monocytes (%) (Auto) 6.0 H, Eosinophils (%) (Auto) 1.7, Basophils (%) (Auto) 0.8, Neutrophils # (Auto) 2.1, Lymphocytes # (Auto) 2.9, Monocytes # (Auto) 0.3, Eosinophils # ( Auto) 0.1, Basophils # (Auto) 0.0 KWADWO IVORY MD Apr 28, 2017 09:42
[2017-04-28] MEDS ORDERED: predniSONE 10 MG TAB PO ONE (10:15)
--- NOTE | 2017-04-28 12:15 | CR ---
DATE OF CONSULTATION: 04/28/2017 REFERRING PHYSICIAN: Dr. Rodrigo Sifuentes REASON FOR CONSULTATION: Nephrotic syndrome. 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 Apparently, he has no significant past medical history and reports that about a week ago he developed some edema on his scrotum. He was seen by emergency medical economics consultant (EMT) and evaluated in the emergency room. He was discharged to home without any intervention. Then he developed lower extremity edema and he was seen at [facility] once again. This time he was noticed to have worsening peripheral edema due to which he was sent to the emergency room and admitted last night with nephrotic syndrome. Nephrology consultation was requested and the patient is seen this morning. He also had one episode of diarrhea, which has resolved but denies any rectal bleeding or black colored stools. PAST MEDICAL AND SURGICAL HISTORY: Significant for: History of tonsillectomy and no other significant medical history. PERSONAL AND SOCIAL HISTORY: The patient smokes one to two cigarettes per week. Denies any alcohol or drug use. FAMILY HISTORY: Family history is negative for any kidney problems or autoimmune diseases. ALLERGIES: The patient has NO KNOWN DRUG ALLERGIES. MEDICATIONS: He has no active medications at home. REVIEW OF SYSTEMS: The patient denies any fever or chills. Ears, nose and throat are unremarkable. Cardiovascular system is negative for dyspnea or chest pain. He does have leg edema of 1 week duration. Respiratory system is negative for cough, hemoptysis, pleuritic type of chest pain. GI system is significant for diarrhea for couple of days, which has already resolved. He denies any nausea, vomiting, abdominal pain, rectal bleeding or black colored stools. system is significant for scrotal swelling. He reports foamy urine for last 1 week. There is no history of hematuria or kidney stones. Endocrine system is negative for diabetes or thyroid problems. Hematological system is negative for easy bruising or excessive bleeding. Psychosocial system is negative for depression or anxiety. Skin is negative for rash or ulcers. He does have history of acne on his back. Neurological system is negative for seizures or stroke. PHYSICAL EXAMINATION: This healthy-looking young soldier laying in the bed without any acute distress. Temperature is 97.1 degrees Fahrenheit, heart rate 54 per minute and respiratory rate 16 per minute. Most recent blood pressure is 93/53 mmHg and oxygen saturation 100% on room air. Head is atraumatic. Ears, nose and throat are unremarkable. Pupils equal and reactive to light and sclera is anicteric. Neck is supple and without jugular venous distention (JVD) or thyroid enlargement. There are no abnormal cervical lymph nodes. Heart sounds are regular and lungs sound clear to auscultation. Abdomen is soft and nontender and without a palpable organomegaly. Extremities: Have no cyanosis or clubbing. There is some edema present on lower extremities. He also has back edema 1+. There is no edema on upper extremities. Skin has some acne on his back. There is no generalized rash or ulcers. Neurologically he is awake, alert and oriented times three without a focal deficit. LABORATORY DATA: Sodium is 143 and potassium 3.8, BUN 17 and creatinine 1.19. Glucose 89 and calcium 7.7. AST 38, ALT 26, CPK 223. Serum albumin only 0.71 while total protein 4.7. Triglycerides 327, total cholesterol 570 and known HDL cholesterol 477. Lipase 151 and a 25 hydroxy vitamin D level at 7.7. Urinalysis showed 3+ protein and 1+ blood. Compliments showed C3 level 152 and C4 level 38. Hepatitis B surface antigen is negative, hepatitis A is negative and syphilis nonreactive. Hepatitis C also negative. Chest x-ray done on admission was negative for any acute cardiopulmonary process. CT scan of abdomen and pelvis done on admission and reviewed independently. There is moderate ascites. Small left pleural effusions and anasarca. Lower extremity ultrasound negative for deep venous thrombosis (DVT). PROBLEMS: 1. Nephrotic syndrome. The patient has significant proteinuria and elevated triglycerides and total cholesterol. He seems to have relatively a short history for his symptoms. We will get a 24-hour urine collection for total protein. A urine protein electrophoresis is already pending in the lab. The patient is empirically being started on prednisone 30 mg twice a day. I have discussed with him at length about need for a diagnostic kidney biopsy. The patient consented for biopsy and it is being scheduled with the radiology department. Within next 24-48 hours. We will perform a diagnostic kidney biopsy and in the meantime continue with prednisone. His Lovenox dose will be held for tonight in anticipation for a kidney biopsy tomorrow. At this point, I am going to stop his IV Lasix as the patient has diuresed significantly and would be at risk for increased risk for thrombosis with intravascular volume depletion. I have reviewed the plan of care with the patient at length and given him an opportunity to ask questions. I have explained to him the procedure of kidney biopsy. I thank you for involving me in the care of Mr. Krishna. I will follow him along with you.
[2017-04-28 12:32] LABS: TOTAL PROTEIN 3.5 GM/DL (6.4-8.2)
[2017-04-28 12:44] LABS: ALBUMIN 0.7 GM/DL (3.2-5.2); ALBUMIN/GLOBULIN RATIO 0.26 (1.00-1.93); ALKALINE PHOSPHATASE 55 U/L (45-117); ALT/SGPT 23 U/L (12-78); ANION GAP 8 MEQ/L (8-16); AST/SGOT 27 U/L (15-37); BILIRUBIN,TOTAL 0.3 MG/DL (0.2-1.0); BLOOD UREA NITROGEN 16 MG/DL (7-18); CALCIUM LEVEL 7.7 MG/DL (8.5-10.1); CARBON DIOXIDE LEVEL 31 MEQ/L (21-32); CHLORIDE LEVEL 106 MEQ/L (98-107); CREATININE FOR GFR 0.95 MG/DL (0.70-1.30); GLUCOSE, FASTING 91 MG/DL (70-105); POTASSIUM SERUM 3.9 MEQ/L (3.5-5.1); SODIUM LEVEL 145 MEQ/L (136-145); TOTAL PROTEIN 3.4 GM/DL (6.4-8.2)
[2017-04-28 14:10] VITALS: BP 106/56
[2017-04-28 14:30] VITALS: BP 107/66
[2017-04-28 14:51] LABS: ALBUMIN 1.44 GM/DL (3.29-5.55); GAMMA GLOBULIN % 11.6 % (11.1-18.8)
--- NOTE | 2017-04-28 21:11 | ECHO ---
DATE OF PROCEDURE: 04/28/2017 REFERRING PHYSICIAN: Rodriog Sifuentes MD INDICATION: Abnormal ECG. HEIGHT: 168 cm WEIGHT: 69 kg DIMENSIONS: IVS: 0.8 LV: 4.1 LVPW: 1.0 LA: 2.6 Aorta: 2.6 FINDINGS: The study is of acceptable technical quality. Parasternal views are excellent, but apical and subcostal views are only fair. Left ventricle is of normal size and systolic function with estimated ejection fraction (EF) 60-65%. Right ventricle also appears normal. Both atria appear normal. All four cardiac valves were well seen and appear normal. There is no pericardial effusion. There appears to be left pleural effusion. Inferior vena cava is normal size. Aortic root is normal. Aortic arch and abdominal aorta were not seen. Doppler interrogation reveals no aortic disease. There is trace mitral insufficiency and trace tricuspid insufficiency. Quality of TR jet was not sufficient to adequately estimate pulmonary artery pressure. Pulmonic valve is also functionally competent. Mitral inflow pattern and tissue Doppler imaging of mitral annulus reveal normal diastolic function. CONCLUSIONS: 1. Study is of acceptable technical quality. 2. Normal LV size, systolic and diastolic function. 3. No significant valvular disease. 4. Normal central venous pressure. 5. Unable to estimate pulmonary artery pressure, but no signs to suggest pulmonary hypertension. 6. Likely left pleural effusion. COMMENTS: Subacute bacterial endocarditis (SBE) prophylaxis is not recommended. MTDD
[2017-04-28] MEDS: predniSONE 10 MG TAB PO SCH (21:44)
[2017-04-29] VITALS (8 sets, daily range): BP systolic 87–111; BP diastolic 46–71
[2017-04-29 07:11] LABS: BASO % 0.1 % (0.0-1.0); EOS % 0.2 % (0.0-3.0); LARGE UNSTAINED CELL % 0.7 % (0.0-4.0); LYMPH # 1.2 K/mm3 (1.5-6.5); LYMPH % 18.9 % (24.0-44.0); MEAN CORPUSCULAR HEMOGLOBIN 28.5 pg (27.0-33.0); MEAN CORPUSCULAR HGB CONC 33.1 g/dl (32.0-36.5); MEAN CORPUSCULAR VOLUME 86.2 fl (80.0-96.0); MONO # 0.1 K/mm3 (0.0-0.8); MONO % 1.9 % (0.0-5.0); NEUTROPHILS % 78.2 % (36.0-66.0); PLATELET COUNT, AUTOMATED 351 k/mm3 (150-450); RED CELL DISTRIBUTION WIDTH 13.2 % (11.5-14.5); WHITE BLOOD COUNT 6.4 K/mm3 (4.0-10.0)
[2017-04-29 07:30] LABS: ALBUMIN 0.7 GM/DL (3.2-5.2); ALBUMIN/GLOBULIN RATIO 0.19 (1.00-1.93); ALKALINE PHOSPHATASE 60 U/L (45-117); ALT/SGPT 26 U/L (12-78); ANION GAP 5 MEQ/L (8-16); AST/SGOT 30 U/L (15-37); BILIRUBIN,TOTAL 0.2 MG/DL (0.2-1.0); BLOOD UREA NITROGEN 17 MG/DL (7-18); CALCIUM LEVEL 7.7 MG/DL (8.5-10.1); CARBON DIOXIDE LEVEL 34 MEQ/L (21-32); CHLORIDE LEVEL 103 MEQ/L (98-107); CREATININE FOR GFR 0.91 MG/DL (0.70-1.30); GLUCOSE, FASTING 142 MG/DL (70-105); POTASSIUM SERUM 4.1 MEQ/L (3.5-5.1); SODIUM LEVEL 142 MEQ/L (136-145); TOTAL PROTEIN 4.4 GM/DL (6.4-8.2)
[2017-04-29] MEDS: ATORVASTATIN 20 MG TAB PO SCH (08:38)
[2017-04-29] MEDS: predniSONE 10 MG TAB PO SCH ×2 (08:38→20:07)
[2017-04-29] MEDS ORDERED: INFLUENZA QUADRIVALENT PF VACCINE 0.5ML SYRINGE (90686) IM ONE (09:00)
[2017-04-29] MEDS ORDERED: LIDOCAINE 2% MDV 20 ML VIAL As Ordered ONE (11:53)
--- NOTE | 2017-04-29 12:28 | IPN ---
DATE: 04/29/2017 Mr. Krishna is seen this morning on his bedside. Nursing staff reports that the patient could not void this morning and a bladder scan showed 880 mL of urine. Later, he did void more than 600 mL and a repeat bladder scan showed only 80 mL of urine. In the meantime, the patient has no other complaints. He denies any nausea, vomiting, dyspnea, or chest pain. Prednisone 30 mg twice a day was started yesterday for nephrotic syndrome and the patient is scheduled for a diagnostic kidney biopsy at noon today. On physical examination, temperature 97.2 degrees Fahrenheit, heart rate 58 per minute and respiratory rate 16 per minute. Blood pressure 95/59 mmHg and oxygen saturation 97% on room air. His head is atraumatic. Ears, nose and throat are unremarkable. Neck is supple and without jugular vein (JVD) or thyroid enlargement. Heart sounds are regular and lungs with slightly diminished breath sounds at the bases, but no wheezing or rales. Abdomen soft and bowel sounds are present. Extremities have no cyanosis or clubbing. He does have some peripheral edema on the lower extremities bilaterally. Skin has acne on the back. Neurologically, he is awake, alert and oriented times three. Today's labs show sodium level 142 and potassium 4.1. CO2 is 34, BUN 17 and creatinine 0.91. Glucose 142 and calcium 7.7. Total protein is 4.4 and albumin 0.7. WBC count is 6.4, hemoglobin 15.7 and hematocrit 47.5. Serum cryoglobulins are negative and hepatitis A, C and B surface antigens are all negative. The rest of serology is still pending. A 24-hour urine collection has been completed; however, results are pending. PROBLEMS: 1. Nephrotic syndrome. Etiology is uncertain. The patient will continue with prednisone 30 mg twice a day. A diagnostic kidney biopsy is scheduled at noon today under ultrasound guidance. The patient has already consented for the biopsy procedure. Once we get the results of his kidney biopsy, then we will discuss further plan of treatment. In the meantime, we will continue with steroids alone.
[2017-04-29] MEDS ORDERED: MORPHINE 2 MG/ML 1ML SYRINGE IV PRN (12:45)
[2017-04-29] MEDS ORDERED: PERCOCET 5MG/325MG TAB PO PRN (12:45)
--- NOTE | 2017-04-29 19:17 | RO ---
DATE OF PROCEDURE: 04/29/2017 PROCEDURE: Is the left kidney biopsy. INDICATIONS FOR PROCEDURE: nephrotic syndrome. DESCRIPTION: Informed consent obtained from the patient for a left kidney biopsy. The patient was brought to ultrasound room and put in proper prone position on the table. Left kidney was identified with ultrasound after which local anesthetic was used. Skin prepped in sterile fashion. Under direct ultrasound guidance kidney was reached with the biopsy needle. Two specimens obtained without any difficulty or problem. No complications. The patient tolerated the procedure well. Specimen sent to pathology for exam. The patient is being transferred back to his medical floor. ZENAIDA
--- NOTE | 2017-04-29 21:30 | IPNPDOC ---
Date Seen The patient was seen on 04/29/17. Progress Note Hospitalist Progress Note Subjective: Patient states that he is feeling well. Nursing reports he has not urinated since last night, but he tells me that he is beginning to have the urge to go Objective: Physical Exam: Vitals: Vital Sign - Last 24 Hours 04/29/17 04/29/17 04/29/17 04/29/17 02:51 06:00 08:14 13:15 Temp 97.2 97.2 97.7 Pulse 69 58 66 Resp 16 16 18 B/P (MAP) 101/59 (73) 95/59 (71) 107/71 (83) Pulse Ox 97 97 97 O2 Delivery Room Air Room Air Room Air Room Air 04/29/17 04/29/17 04/29/17 04/29/17 13:25 14:15 14:15 15:20 Temp 97.7 98.2 97.8 Pulse 66 59 60 Resp 18 18 16 18 B/P (MAP) 107/71 111/68 (82) 87/46 (60) Pulse Ox 97 98 98 O2 Delivery Room Air Room Air 04/29/17 04/29/17 04/29/17 04/29/17 15:30 16:15 20:00 20:00 Temp 98.2 97.4 Pulse 56 52 Resp 18 16 B/P (MAP) 108/62 (77) 100/55 (70) 105/58 (74) Pulse Ox 98 98 O2 Delivery Room Air Room Air Room Air General: Awake, alert, no acute distress HEENT: Normocephalic, atraumatic, extraocular movements intact CV: Regular rate and rhythm Lungs: Clear to auscultation bilaterally Abd: Soft, nontender, nondistended Extremities: Diffuse edema Neuro: Alert and oriented 3, normal speech Psych: Normal mood and affect Labs and Imaging: Laboratory Tests 04/29/17 06:41 Red Blood Count 5.51, Mean Corpuscular Volume 86.2, Mean Corpuscular Hemoglobin 28.5, Mean Corpuscular Hemoglobin Concent 33.1, Red Cell Distribution Width 13.2 , Neutrophils (%) (Auto) 78.2 H, Lymphocytes (%) (Auto) 18.9 L, Monocytes (%) ( Auto) 1.9, Eosinophils (%) (Auto) 0.2, Basophils (%) (Auto) 0.1, Neutrophils # ( Auto) 5.0, Lymphocytes # (Auto) 1.2 L, Monocytes # (Auto) 0.1, Eosinophils # ( Auto) 0.0, Basophils # (Auto) 0.0, Calcium Level 7.7 L, Aspartate Amino Transf ( AST/SGOT) 30, Alanine Aminotransferase (ALT/SGPT) 26, Alkaline Phosphatase 60, Total Bilirubin 0.2, Total Protein 4.4 #L, Albumin 0.7 L Assessment and Plan: 21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 He is admitted with concern for nephrotic syndrome. 1. Nephrotic syndrome: Nephrology is following along, and we greatly appreciate their input. The patient is going for renal biopsy today. Syphilis, hepatitis panel, HIV, C3, C4, CBC, CMP, coags, and BNP are all unremarkable. There is no evidence of DVT in his bilateral lower extremities. Echocardiogram is unremarkable. Continue prednisone as per nephrology. 2. Hyperlipidemia: Secondary to nephrotic syndrome. Continue statin DVT prophylaxis: Lovenox Dispo: pending workup for nephrotic syndrome VS, I&O, 24H, [facility] Vital Signs/I&O Vital Signs Date Time Temp Pulse Resp B/P (MAP) Pulse Ox O2 Delivery O2 Flow Rate FiO2 04/29/17 20:00 Room Air 04/29/17 20:00 97.4 52 16 105/58 (74) 98 I&O- Last 24 Hours up to 6 AM 04/29/17 06:00 Intake Total 1200 ml Output Total 1000 ml Balance 200 ml Laboratory Data 24H LABS Laboratory Tests 2 04/29/17 06:41: White Blood Count 6.4, Red Blood Count 5.51, Hemoglobin 15.7, Hematocrit 47.5, Mean Corpuscular Volume 86.2, Mean Corpuscular Hemoglobin 28.5, Mean Corpuscular Hemoglobin Concent 33.1, Red Cell Distribution Width 13.2, Platelet Count 351, Neutrophils (%) (Auto) 78.2H, Lymphocytes (%) (Auto) 18.9L, Monocytes (%) (Auto) 1.9, Eosinophils (%) (Auto) 0.2, Basophils (%) (Auto) 0.1, Neutrophils # (Auto) 5.0, Lymphocytes # (Auto) 1.2L, Monocytes # (Auto) 0.1, Eosinophils # (Auto) 0.0, Basophils # (Auto) 0.0, Large Unclassified Cells % 0.7 , Large Unclassified Cells # 0.0, Anion Gap 5L, Blood Urea Nitrogen 17, Creatinine 0.91, Sodium Level 142, Potassium Level 4.1, Chloride Level 103, Carbon Dioxide Level 34H, Calcium Level 7.7L, Aspartate Amino Transf (AST/SGOT) 30, Alanine Aminotransferase (ALT/SGPT) 26, Alkaline Phosphatase 60, Total Bilirubin 0.2, Total Protein 4.4#L, Albumin 0.7L, Albumin/Globulin Ratio 0.19L 04/29/17 09:35: Urine Total Volume 1150, Urine Total Protein 24 Hour 9620.9H, Urine Total Protein 836.6H CBC/BMP Laboratory Tests 04/29/17 06:41 Red Blood Count 5.51, Mean Corpuscular Volume 86.2, Mean Corpuscular Hemoglobin 28.5, Mean Corpuscular Hemoglobin Concent 33.1, Red Cell Distribution Width 13.2 , Neutrophils (%) (Auto) 78.2 H, Lymphocytes (%) (Auto) 18.9 L, Monocytes (%) ( Auto) 1.9, Eosinophils (%) (Auto) 0.2, Basophils (%) (Auto) 0.1, Neutrophils # ( Auto) 5.0, Lymphocytes # (Auto) 1.2 L, Monocytes # (Auto) 0.1, Eosinophils # ( Auto) 0.0, Basophils # (Auto) 0.0, Calcium Level 7.7 L, Aspartate Amino Transf ( AST/SGOT) 30, Alanine Aminotransferase (ALT/SGPT) 26, Alkaline Phosphatase 60, Total Bilirubin 0.2, Total Protein 4.4 #L, Albumin 0.7 L MARLYN LYON Apr 29, 2017 21:30
[2017-04-30 00:07] LABS: HEPATITIS C QUANTITATION HCV Not Detected IU/mL (.)
[2017-04-30 00:07] LABS: HBVCOREDIFF1 Negative (Negative); HBVCOREDIFF2 Negative (Negative)
[2017-04-30 01:46] VITALS: BP 95/56
[2017-04-30 06:00] VITALS: BP 94/53
[2017-04-30 08:00] VITALS: BP 103/62
[2017-04-30] MEDS: predniSONE 10 MG TAB PO SCH (08:16)
[2017-04-30] MEDS: ATORVASTATIN 20 MG TAB PO SCH (08:16)
[2017-04-30 08:26] LABS: ALBUMIN 0.8 GM/DL (3.2-5.2); ALBUMIN/GLOBULIN RATIO 0.29 (1.00-1.93); ALKALINE PHOSPHATASE 60 U/L (45-117); ALT/SGPT 30 U/L (12-78); ANION GAP 6 MEQ/L (8-16); AST/SGOT 38 U/L (15-37); BILIRUBIN,TOTAL 0.2 MG/DL (0.2-1.0); BLOOD UREA NITROGEN 20 MG/DL (7-18); CALCIUM LEVEL 7.1 MG/DL (8.5-10.1); CARBON DIOXIDE LEVEL 33 MEQ/L (21-32); CHLORIDE LEVEL 104 MEQ/L (98-107); CREATININE FOR GFR 0.96 MG/DL (0.70-1.30); GLUCOSE, FASTING 115 MG/DL (70-105); MAGNESIUM LEVEL 1.9 MG/DL (1.4-2.0); POTASSIUM SERUM 5.1 MEQ/L (3.5-5.1); SODIUM LEVEL 143 MEQ/L (136-145); TOTAL PROTEIN 3.6 GM/DL (6.4-8.2)
[2017-04-30 08:33] LABS: BASO % 0.2 % (0.0-1.0); EOS # 0.1 K/mm3 (0.0-0.50); EOS % 0.8 % (0.0-3.0); LARGE UNSTAINED CELL # 0.1 K/mm3 (0.0-0.4); LARGE UNSTAINED CELL % 0.7 % (0.0-4.0); LYMPH # 1.6 K/mm3 (1.5-6.5); LYMPH % 17.6 % (24.0-44.0); MEAN CORPUSCULAR HEMOGLOBIN 27.2 pg (27.0-33.0); MEAN CORPUSCULAR HGB CONC 31.5 g/dl (32.0-36.5); MEAN CORPUSCULAR VOLUME 86.3 fl (80.0-96.0); MONO # 0.3 K/mm3 (0.0-0.8); MONO % 3.5 % (0.0-5.0); NEUTROPHILS # 6.8 K/mm3 (1.8-7.7); NEUTROPHILS % 77.2 % (36.0-66.0); PLATELET COUNT, AUTOMATED 351 k/mm3 (150-450); RED CELL DISTRIBUTION WIDTH 13.5 % (11.5-14.5); WHITE BLOOD COUNT 8.8 K/mm3 (4.0-10.0)
[2017-04-30] MEDS ORDERED: ENOXAPARIN 40 MG/0.4 ML SYRINGE (J1650) SC ONE (10:15)
--- NOTE | 2017-04-30 10:45 | IPN ---
DATE: 04/30/2017 Mr. Krishna is seen this morning on his bedside. He underwent ultrasound-guided left kidney biopsy yesterday without any problems. The patient has been feeling well and denies any pain at the biopsy site. He has no nausea, vomiting, flank pain, dysuria or gross hematuria. PHYSICAL EXAMINATION: Temperature 96.8 degrees Fahrenheit, heart rate 54 per minute, respiratory rate 18 per minute. Blood pressure 103/62 mmHg and oxygen saturation 98% on room air. Intake and output records from yesterday show almost even intake and output. His neck veins are not abnormally distended. Ears, nose and throat are unremarkable. Heart sounds are regular and lungs clear to auscultation. Kidney biopsy site is clean, and I removed the dressing. Abdomen is soft and nontender and without a palpable organomegaly. Bowel sounds are normal. Extremities have no cyanosis or clubbing. Peripheral edema is present on lower extremities. Neurologically, he is awake, alert and oriented times three. Today's labs show WBC count 8.8, hemoglobin 15.1 and hematocrit 48.1. Platelets 351. Sodium 143 and potassium 5.1. CO2 is 33, BUN 20 and creatinine 0.96. Total protein 3.6 and albumin 0.8. His 24-hour urine protein was 9.62 grams. PROBLEMS: 1. Nephrotic syndrome. The patient remains on prednisone 30 mg twice a day. We will resume Lovenox 40 mg subcutaneously daily for deep vein thrombosis (DVT) prophylaxis. Patient has severe nephrotic syndrome and has high risk for thromboembolic complications. At this point, his kidney biopsy results are pending. The patient will be discharged to home and followup as outpatient next week. In the meantime, continue with prednisone 30 mg twice a day. The patient will also be continued on Lovenox 40 mg daily and nursing staff is being advised to teach him the injection before he leaves the hospital. I explained the plan of care to the patient. He did not have any further questions. He will be given an office appointment for next week.
[2017-04-30] MEDS ORDERED: LOVE1INJ SC (11:45)
[2017-04-30] MEDS ORDERED: ATOR1TAB21 PO (11:45)
[2017-04-30] MEDS ORDERED: PRED10TA2 PO (11:45)
--- NOTE | 2017-04-30 15:15 | DS.PDOC ---
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 He is admitted with concern for nephrotic syndrome. 1. Nephrotic syndrome: Nephrology is following along, and we greatly appreciate their input. The patient is s/p renal biopsy on 04/29/2017 and results are currently pending. Syphilis, hepatitis panel, HIV, C3, C4, CBC, CMP, coags, and BNP are all unremarkable. There is no evidence of DVT in his bilateral lower extremities. Echocardiogram is unremarkable. Continue prednisone as per nephrology. 2. Hyperlipidemia: Secondary to nephrotic syndrome. Continue statin DVT prophylaxis: Lovenox, continued at discharge, as the patient is at very high risk given his nephrotic syndrome PHYSICAL EXAMINATION ON DISCHARGE: VITAL SIGNS: Vital Signs Date Time Temp Pulse Resp B/P (MAP) Pulse Ox O2 Delivery O2 Flow Rate FiO2 04/30/17 08:00 96.8 54 18 103/62 (76) 98 Room Air General: Awake, alert, no acute distress HEENT: Normocephalic, atraumatic, extraocular movements intact CV: Regular rate and rhythm Lungs: Clear to auscultation bilaterally Abd: Soft, nontender, nondistended Extremities: Diffuse edema Neuro: Alert and oriented 3, normal speech Psych: Normal mood and affect DISPOSITION: Home DISCHARGE INSTRUCTIONS: Follow-up with PCP within one week. Follow-up with Dr. Piper next week. Refrain from PT until cleared by Dr. Piper; patient was given a note attesting to this recommendation. If symptoms return, or if you experience worsening of your symptoms, please call your doctor or return to the emergency department. ITEMS THAT NEED OUTPATIENT FOLLOWUP: Renal biopsy results Patient was seen and examined by me on the day of discharge, and I spent a total time of greater than 30 minutes on this discharge. Vital Signs/I&Os Vital Signs Date Time Temp Pulse Resp B/P (MAP) Pulse Ox O2 Delivery O2 Flow Rate FiO2 04/30/17 08:00 96.8 54 18 103/62 (76) 98 Room Air I&O- Last 24 Hours up to 6 AM 04/30/17 06:00 Intake Total 1620 ml Output Total 1550 ml Balance 70 ml Laboratory Data Labs 24H Laboratory Tests 2 04/30/17 07:24: White Blood Count 8.8, Red Blood Count 5.57, Hemoglobin 15.1, Hematocrit 48.1, Mean Corpuscular Volume 86.3, Mean Corpuscular Hemoglobin 27.2, Mean Corpuscular Hemoglobin Concent 31.5L, Red Cell Distribution Width 13.5, Platelet Count 351, Neutrophils (%) (Auto) 77.2H, Lymphocytes (%) (Auto) 17.6L, Monocytes (%) (Auto) 3.5, Eosinophils (%) (Auto) 0.8, Basophils (%) (Auto) 0.2, Neutrophils # (Auto) 6.8, Lymphocytes # (Auto) 1.6, Monocytes # (Auto) 0.3, Eosinophils # (Auto) 0.1, Basophils # (Auto) 0.0, Large Unclassified Cells % 0.7 , Large Unclassified Cells # 0.1, Anion Gap 6L, Blood Urea Nitrogen 20H, Creatinine 0.96, Sodium Level 143, Potassium Level 5.1#, Chloride Level 104, Carbon Dioxide Level 33H, Calcium Level 7.1L, Aspartate Amino Transf (AST/SGOT) 38H, Alanine Aminotransferase (ALT/SGPT) 30, Alkaline Phosphatase 60, Total Bilirubin 0.2, Total Protein 3.6L, Albumin 0.8L, Magnesium Level 1.9, Albumin/ Globulin Ratio 0.29L CBC/BMP Laboratory Tests 04/30/17 07:24 Red Blood Count 5.57, Mean Corpuscular Volume 86.3, Mean Corpuscular Hemoglobin 27.2, Mean Corpuscular Hemoglobin Concent 31.5 L, Red Cell Distribution Width 13.5, Neutrophils (%) (Auto) 77.2 H, Lymphocytes (%) (Auto) 17.6 L, Monocytes (% ) (Auto) 3.5, Eosinophils (%) (Auto) 0.8, Basophils (%) (Auto) 0.2, Neutrophils # (Auto) 6.8, Lymphocytes # (Auto) 1.6, Monocytes # (Auto) 0.3, Eosinophils # ( Auto) 0.1, Basophils # (Auto) 0.0, Calcium Level 7.1 L, Aspartate Amino Transf ( AST/SGOT) 38 H, Alanine Aminotransferase (ALT/SGPT) 30, Alkaline Phosphatase 60 , Total Bilirubin 0.2, Total Protein 3.6 L, Albumin 0.8 L Discharge Medications Scheduled Atorvastatin Calcium (Atorvastatin Calcium) 20 Mg Tab, 40 MG PO DAILY Enoxaparin Sodium (Lovenox) 40 Mg/0.4 Ml Inj, 40 MG SC DAILY Prednisone (Prednisone) 10 Mg Tab, 30 MG PO BID Reevaluate need for refill with Dr. Piper at [facility] next week Allergies Coded Allergies: No Known Allergies (Unverified , 04/27/17) MARLYN LYON Apr 30, 2017 15:15
[2017-05-01] MEDS ORDERED: ENOXAPARIN 40 MG/0.4 ML SYRINGE (J1650) SC SCH (09:00)
--- NOTE | 2017-05-20 09:16 | REP ---
ULTRASOUND GUIDANCE: HISTORY: Kidney biopsy. FINDINGS: Sonographic guidance is provided to Dr. Piper, who performed ultrasound-guided needle biopsy of the left kidney. Signed by Poncho Goodson MD 05/20/2017 09:30 A
== END 2017-04-30 13:26 | disposition home or self-care (01) | DRG 700 ==
LOC: M ED 14:13 → M ED INP 19:58 → M PCU 23:50 → M MS4PR 04-28 14:26
PROVIDERS: ADMIT Internal Medicine; ATTEND Hospitalist
PROC: 0TB43ZX Excision of Left Kidney Pelvis, Percutaneous Approach, Diagnostic (ICD-10-PCS; principal; 2017-04-29)
DX: N04.9 Nephrotic syndrome with unspecified morphologic changes (principal); E78.5 Hyperlipidemia, unspecified; Z79.899 Other long term (current) drug therapy; F17.200 Nicotine dependence, unspecified, uncomplicated; R60.1 Generalized edema

== ENCOUNTER → 2017-05-07 | Outpatient (REF) | payer OTHER ==
[~2017-05-07] MED LIST changes: +ATOR1TAB21 PO; +LASI20TA PO; +LOVE0.4I2 SC; +LOVE1INJ SC; +POTA10CA PO; +PRED10TA2 PO
== END ==
LOC: M LAB REF 13:23
PROVIDERS: ATTEND Internal Medicine Nephrology
DX: N04.0 Nephrotic syndrome with minor glomerular abnormality (principal)

== ENCOUNTER → 2017-05-13 | Outpatient (REF) | payer OTHER | LOC: M SMT 13:18 | PROVIDERS: ATTEND Nurse Practitioner Women's Health | DX: N50.819 Testicular pain, unspecified (principal) ==

== ENCOUNTER → 2017-05-22 | Outpatient (REF) | payer OTHER | LOC: M LAB REF 17:36 | PROVIDERS: ATTEND Internal Medicine Nephrology | DX: N04.0 Nephrotic syndrome with minor glomerular abnormality (principal) ==

== ENCOUNTER 2017-05-30 09:59 | Emergency (ER) | payer OTHER ==
[~2017-05-30] VITALS: Ht 167.6 cm; Wt 63.6 kg
[~2017-05-30 09:59] MED LIST changes: -LASI20TA PO; -LOVE0.4I2 SC; -POTA10CA PO
[2017-05-30] MEDS ORDERED: LASI20TA PO (10:09)
[2017-05-30] MEDS ORDERED: POTA10CA PO (10:09)
[2017-05-30 11:00] LABS: BASO % 0.2 % (0.0-1.0); EOS # 0.1 10^3/uL (0.0-0.50); EOS % 1.6 % (0.0-3.0); IMMATURE GRANULOCYTE % 0.4 % (0-0); LYMPH # 1.9 10^3/uL (1.5-6.5); LYMPH % 22.2 % (24.0-44.0); MEAN CORPUSCULAR HEMOGLOBIN 27.3 pg (27.0-33.0); MEAN CORPUSCULAR HGB CONC 31.8 g/dl (32.0-36.5); MEAN CORPUSCULAR VOLUME 85.7 fl (80.0-96.0); MONO # 0.4 10^3/uL (0.0-0.8); MONO % 4.8 % (0.0-5.0); NEUTROPHILS # 5.9 10^3/uL (1.8-7.7); NEUTROPHILS % 70.8 % (36.0-66.0); PLATELET COUNT, AUTOMATED 304 10^3/uL (150-450); RED CELL DISTRIBUTION WIDTH 14.9 % (11.5-14.5); WHITE BLOOD COUNT 8.4 10^3/uL (4.0-10.0)
[2017-05-30 11:18] LABS: INR 0.87
[2017-05-30 11:26] LABS: ALBUMIN 1.1 GM/DL (3.2-5.2); ALBUMIN/GLOBULIN RATIO 0.34 (1.00-1.93); ALKALINE PHOSPHATASE 68 U/L (45-117); ALT/SGPT 16 U/L (12-78); ANION GAP 4 MEQ/L (8-16); AST/SGOT 20 U/L (15-37); BILIRUBIN,DIRECT < 0.1 MG/DL (0.0-0.2); BILIRUBIN,TOTAL 0.3 MG/DL (0.2-1.0); BLOOD UREA NITROGEN 13 MG/DL (7-18); CARBON DIOXIDE LEVEL 36 MEQ/L (21-32); CHLORIDE LEVEL 102 MEQ/L (98-107); CREATININE FOR GFR 0.76 MG/DL (0.70-1.30); GLUCOSE, FASTING 93 MG/DL (70-105); POTASSIUM SERUM 4.3 MEQ/L (3.5-5.1); SODIUM LEVEL 142 MEQ/L (136-145); TOTAL PROTEIN 4.3 GM/DL (6.4-8.2)
--- NOTE | 2017-05-30 11:48 | REP ---
Duplex extremity venous ultrasound: Bilateral lower extremities. History: Bilateral leg swelling. Findings: The deep veins are anechoic and fully compressible from the groin to the popliteal fossa in the left and right lower extremity. Color flow imaging is homogeneous. Spectral Doppler interrogation demonstrates intact respiratory variation in flow and normal manual augmentation of flow. There is no evidence of deep vein thrombosis. Impression: Negative bilateral lower extremity duplex venous ultrasound. No evidence of deep vein thrombosis. Signed by Poncho Goodson MD 05/30/2017 11:41 A
[2017-05-30] MEDS ORDERED: LOVE0.4I2 SC (12:26)
[2017-05-30] MEDS ORDERED: ENOXAPARIN 60 MG/0.6 ML SYR (J1650) SC ONE (12:30)
[2017-05-30 12:48] VITALS: BP 127/78
== END 2017-05-30 12:49 | disposition home or self-care (01) ==
LOC: M ED 09:59
DX: R60.9 Edema, unspecified (principal); N04.9 Nephrotic syndrome with unspecified morphologic changes; F17.200 Nicotine dependence, unspecified, uncomplicated; Z79.899 Other long term (current) drug therapy
CPT/HCPCS: 80048; 80076; 85025; 85610; 85730; 93970; 99283; J1650

== ENCOUNTER → 2017-06-02 | Outpatient (REF) | payer OTHER ==
[~2017-06-02] MED LIST changes: +LASI20TA PO; +LOVE0.4I2 SC; +POTA10CA PO
== END ==
LOC: M LAB REF 17:07
PROVIDERS: ATTEND Internal Medicine Nephrology
DX: N04.9 Nephrotic syndrome with unspecified morphologic changes (principal)

== ENCOUNTER → 2017-06-13 | Outpatient (REF) | payer OTHER | LOC: M LAB REF 12:51 | PROVIDERS: ATTEND Internal Medicine Nephrology | DX: N04.0 Nephrotic syndrome with minor glomerular abnormality (principal) ==

== ENCOUNTER → 2017-06-30 | Outpatient (REF) | payer OTHER | LOC: M LAB REF 12:44 | PROVIDERS: ATTEND Internal Medicine Nephrology | DX: Z51.81 Encounter for therapeutic drug level monitoring (principal); N04.9 Nephrotic syndrome with unspecified morphologic changes; R80.9 Proteinuria, unspecified ==

== ENCOUNTER 2017-07-23 06:59 | Inpatient (IN) | payer OTHER ==
[2017-07-23 09:14] LABS: MEAN CORPUSCULAR HEMOGLOBIN 27.7 pg (27.0-33.0); MEAN CORPUSCULAR HGB CONC 33.1 g/dl (32.0-36.5); MEAN CORPUSCULAR VOLUME 83.6 fl (80.0-96.0); PLATELET COUNT, AUTOMATED 274 10^3/uL (150-450); RED CELL DISTRIBUTION WIDTH 15.7 % (11.5-14.5); WHITE BLOOD COUNT 3.3 10^3/uL (4.0-10.0)
[2017-07-23 09:27] LABS: ADD MANUAL DIFFER YES; DIFF SLIDE NUMBER 137; LEFT SHIFT POS FLAG; POSITIVE MORPH POS FLAG
[2017-07-23] MEDS: NS 1,000 ML IV ×2 (09:30→19:24)
[2017-07-23 10:08] LABS: ALBUMIN 0.5 GM/DL (3.2-5.2); ALBUMIN/GLOBULIN RATIO 0.17 (1.00-1.93); ALKALINE PHOSPHATASE 47 U/L (45-117); ALT/SGPT 12 U/L (12-78); ANION GAP 7 MEQ/L (8-16); AST/SGOT 31 U/L (7-37); BILIRUBIN,DIRECT < 0.1 MG/DL (0.0-0.2); BILIRUBIN,TOTAL 0.4 MG/DL (0.2-1.0); BLOOD UREA NITROGEN 16 MG/DL (7-18); CALCIUM LEVEL 6.9 MG/DL (8.5-10.1); CARBON DIOXIDE LEVEL 29 MEQ/L (21-32); CHLORIDE LEVEL 103 MEQ/L (98-107); CREATININE FOR GFR 1.24 MG/DL (0.70-1.30); GLUCOSE, FASTING 121 MG/DL (70-105); MAGNESIUM LEVEL 1.7 MG/DL (1.8-2.4); PHOSPHORUS LEVEL 3.1 MG/DL (2.5-4.9); POTASSIUM SERUM 4.3 MEQ/L (3.5-5.1); SODIUM LEVEL 139 MEQ/L (136-145); TOTAL PROTEIN 3.4 GM/DL (6.4-8.2)
[2017-07-23] MEDS ORDERED: ISOVUE-370 76% 100ML VIAL (Q9967) As Ordered (10:17)
[2017-07-23 12:05] LABS: INR 1.07
[2017-07-23 12:38] LABS: LACTIC ACID SEPSIS PROTOCOL 3.2 MMOL/L (0.4-2.0)
[2017-07-23] MEDS ORDERED: ONDANSETRON 4MG/2ML VIAL (J2405) IV (12:45)
[2017-07-23] MEDS ORDERED: HEPARIN SOD (PORCINE) 5000 UNITS/ML VIAL IV (12:45)
[2017-07-23] MEDS: PIPERACILLIN/TAZOBACTAM SOD 3.375 GM in APPROPRIATE DILUENT 1 EA IV ×2 (13:20→22:21)
[2017-07-23] MEDS: SODIUM CHLORIDE 0.9% 1000 ML IV ×2 (13:20→17:45)
[2017-07-23] MEDS: methylPREDNISolone 500 MG, VIAL MATE ADAPTER 1 EACH in D5W 250 ML IV (14:28)
[2017-07-23] MEDS: DOCUSATE SODIUM 100 MG CAP PO ×2 (14:28→21:00)
[2017-07-23] MEDS: SANDIMMUNE PO (14:28)
[2017-07-23] MEDS: HEPARIN DRIP 25,000 UNITS in APPROPRIATE DILUENT 1 EA IV (15:27)
[2017-07-23] MEDS: ACETAMINOPHEN TAB 650MG DOSE (2X325MG) PO (15:38)
[2017-07-23] MEDS: MORPHINE 2 MG/ML 1ML SYRINGE IV ×2 (18:49→21:05)
[2017-07-23 18:51] LABS: TYPE AND SCREEN 1
[2017-07-23] MEDS: VANCOMYCIN HCL 1,000 MG, VIAL MATE ADAPTER 1 EACH in D5W 250 ML IV (19:44)
[2017-07-23 20:54] LABS: TYPE AND SCREEN 1
[2017-07-23] MEDS ORDERED: SANDIMMUNE PO (21:00)
[2017-07-23 22:15] LABS: LACTIC ACID SEPSIS PROTOCOL 1.8 MMOL/L (0.4-2.0)
[2017-07-23] MEDS: CALCIUM GLUCONATE 1,000 MG in D5W MINI-BAG PLUS 100 ML IV (22:20)
[2017-07-23] MEDS: PANTOPRAZOLE 40MG INJ (PROTONIX) (C9113) IV (22:20)
[2017-07-23 22:48] LABS: AMYLASE 16 U/L (25-115)
[2017-07-24] MEDS: NS 1,000 ML IV (00:07)
[2017-07-24] MEDS: MAG SULF 1GM/100ML (MAG RUN) 1 GM in APPROPRIATE DILUENT 1 EA IV (00:07)
[2017-07-24 04:14] LABS: TYPE AND SCREEN 1
[2017-07-24] MEDS: MORPHINE 2 MG/ML 1ML SYRINGE IV ×3 (04:36→16:27)
[2017-07-24] MEDS: PIPERACILLIN/TAZOBACTAM SOD 3.375 GM in APPROPRIATE DILUENT 1 EA IV ×3 (04:37→20:21)
[2017-07-24] MEDS: VANCOMYCIN HCL 1,000 MG, VIAL MATE ADAPTER 1 EACH in D5W 250 ML IV ×2 (06:15→18:11)
[2017-07-24 06:33] LABS: MEAN CORPUSCULAR HEMOGLOBIN 27.4 pg (27.0-33.0); MEAN CORPUSCULAR VOLUME 83.2 fl (80.0-96.0); RED CELL DISTRIBUTION WIDTH 14.5 % (11.5-14.5); WHITE BLOOD COUNT 7.2 10^3/uL (4.0-10.0)
[2017-07-24 06:42] LABS: PLATELET COUNT, AUTOMATED 168 10^3/uL (150-450)
[2017-07-24 07:00] LABS: LACTIC ACID SEPSIS PROTOCOL 1.4 MMOL/L (0.4-2.0)
[2017-07-24 07:24] LABS: ALBUMIN 1.1 GM/DL (3.2-5.2); ALKALINE PHOSPHATASE 25 U/L (45-117); ALT/SGPT < 6 U/L (12-78); ANION GAP 9 MEQ/L (8-16); AST/SGOT 14 U/L (7-37); BILIRUBIN,TOTAL 1.1 MG/DL (0.2-1.0); BLOOD UREA NITROGEN 16 MG/DL (7-18); CALCIUM LEVEL 6.7 MG/DL (8.5-10.1); CARBON DIOXIDE LEVEL 25 MEQ/L (21-32); CHLORIDE LEVEL 105 MEQ/L (98-107); CREATININE FOR GFR 1.21 MG/DL (0.70-1.30); GLUCOSE, FASTING 145 MG/DL (70-105); POTASSIUM SERUM 4.3 MEQ/L (3.5-5.1); SODIUM LEVEL 139 MEQ/L (136-145); TOTAL PROTEIN 3.3 GM/DL (6.4-8.2)
[2017-07-24] MEDS: PERCOCET 5MG/325MG TAB PO ×2 (07:53→16:26)
[2017-07-24] MEDS: DOCUSATE SODIUM 100 MG CAP PO ×2 (07:53→20:21)
[2017-07-24 09:38] LABS: MAGNESIUM LEVEL 1.9 MG/DL (1.8-2.4)
[2017-07-24 10:14] LABS: TYPE AND SCREEN 1
[2017-07-24] MEDS: methylPREDNISolone 500 MG, VIAL MATE ADAPTER 1 EACH in D5W 250 ML IV (12:05)
[2017-07-24 16:43] LABS: TYPE AND SCREEN 1
[2017-07-24] MEDS: PANTOPRAZOLE 40MG INJ (PROTONIX) (C9113) IV (20:21)
[2017-07-24 22:31] LABS: TOTAL VOLUME, URINE 750 ML
[2017-07-24] MEDS: ATORVASTATIN 20 MG TAB PO (23:00)
[2017-07-24 23:47] LABS: TYPE AND SCREEN 1
[2017-07-25] MEDS: PIPERACILLIN/TAZOBACTAM SOD 3.375 GM in APPROPRIATE DILUENT 1 EA IV ×3 (04:48→20:18)
[2017-07-25 04:59] LABS: MEAN CORPUSCULAR HEMOGLOBIN 27.5 pg (27.0-33.0); MEAN CORPUSCULAR HGB CONC 33.4 g/dl (32.0-36.5); MEAN CORPUSCULAR VOLUME 82.1 fl (80.0-96.0); PLATELET COUNT, AUTOMATED 159 10^3/uL (150-450); RED CELL DISTRIBUTION WIDTH 14.3 % (11.5-14.5); WHITE BLOOD COUNT 8.4 10^3/uL (4.0-10.0)
[2017-07-25] MEDS: HEPARIN DRIP 25,000 UNITS in APPROPRIATE DILUENT 1 EA IV (05:02)
[2017-07-25 05:30] LABS: ALBUMIN 1.1 GM/DL (3.2-5.2); ALBUMIN/GLOBULIN RATIO 0.44 (1.00-1.93); ALKALINE PHOSPHATASE 24 U/L (45-117); ALT/SGPT < 6 U/L (12-78); ANION GAP 8 MEQ/L (8-16); AST/SGOT 11 U/L (7-37); BLOOD UREA NITROGEN 20 MG/DL (7-18); CALCIUM LEVEL 6.9 MG/DL (8.5-10.1); CARBON DIOXIDE LEVEL 27 MEQ/L (21-32); CHLORIDE LEVEL 100 MEQ/L (98-107); GLUCOSE, FASTING 140 MG/DL (70-105); SODIUM LEVEL 135 MEQ/L (136-145); TOTAL PROTEIN 3.6 GM/DL (6.4-8.2)
[2017-07-25] MEDS: VANCOMYCIN HCL 1,000 MG, VIAL MATE ADAPTER 1 EACH in D5W 250 ML IV ×2 (06:04→14:15)
[2017-07-25 07:24] LABS: TYPE AND SCREEN 1
[2017-07-25] MEDS: MORPHINE 2 MG/ML 1ML SYRINGE IV (09:11)
[2017-07-25] MEDS: DOCUSATE SODIUM 100 MG CAP PO ×2 (09:12→20:18)
[2017-07-25] MEDS: PERCOCET 5MG/325MG TAB PO (09:12)
[2017-07-25] MEDS ORDERED: CALCIUM GLUCONATE 1,000 MG in D5W MINI-BAG PLUS 100 ML IV (11:00)
[2017-07-25] MEDS: methylPREDNISolone 500 MG, VIAL MATE ADAPTER 1 EACH in D5W 250 ML IV (12:07)
[2017-07-25 16:00] LABS: TYPE AND SCREEN 1
[2017-07-25] MEDS: ATORVASTATIN 20 MG TAB PO (20:18)
[2017-07-25] MEDS: PANTOPRAZOLE 40MG INJ (PROTONIX) (C9113) IV (20:18)
[2017-07-25] MEDS: APIXABAN 5 MG TAB (ELIQUIS) PO (22:43)
[2017-07-25] MEDS: CEFTRIAXONE SOD 1 GM in APPROPRIATE DILUENT 1 EA IV (23:56)
[2017-07-26 00:06] LABS: Lyme Disease IgG/IgM Antibodie <0.91 ISR (0.00-0.90); Lyme Disease IgM Ab Quantitati <0.80 index (0.00-0.79)
[2017-07-26] MEDS: VANCOMYCIN HCL 1,000 MG, VIAL MATE ADAPTER 1 EACH in D5W 250 ML IV (01:57)
[2017-07-26 05:38] LABS: MEAN CORPUSCULAR HEMOGLOBIN 27.3 pg (27.0-33.0); MEAN CORPUSCULAR HGB CONC 33.2 g/dl (32.0-36.5); MEAN CORPUSCULAR VOLUME 82.3 fl (80.0-96.0); PLATELET COUNT, AUTOMATED 174 10^3/uL (150-450); RED CELL DISTRIBUTION WIDTH 14.2 % (11.5-14.5); WHITE BLOOD COUNT 9.4 10^3/uL (4.0-10.0)
[2017-07-26 06:37] LABS: ALBUMIN 0.8 GM/DL (3.2-5.2); ALBUMIN/GLOBULIN RATIO 0.29 (1.00-1.93); ALKALINE PHOSPHATASE 46 U/L (45-117); ALT/SGPT 10 U/L (12-78); ANION GAP 10 MEQ/L (8-16); AST/SGOT 19 U/L (7-37); BILIRUBIN,TOTAL 0.5 MG/DL (0.2-1.0); BLOOD UREA NITROGEN 27 MG/DL (7-18); CALCIUM LEVEL 6.9 MG/DL (8.5-10.1); CARBON DIOXIDE LEVEL 24 MEQ/L (21-32); CHLORIDE LEVEL 102 MEQ/L (98-107); CREATININE FOR GFR 1.43 MG/DL (0.70-1.30); GLUCOSE, FASTING 131 MG/DL (70-105); SODIUM LEVEL 136 MEQ/L (136-145); TOTAL PROTEIN 3.6 GM/DL (6.4-8.2)
[2017-07-26 06:43] LABS: CHOLESTEROL LEVEL 320 MG/DL (<200); FREE T4 0.36 NG/DL (0.78-1.33); TRIGLYCERIDES LEVEL 124 MG/DL (<150)
[2017-07-26] MEDS: DOCUSATE SODIUM 100 MG CAP PO ×2 (08:20→20:01)
[2017-07-26] MEDS: APIXABAN 5 MG TAB (ELIQUIS) PO ×2 (08:20→20:01)
[2017-07-26] MEDS: METHYLPREDNISOLONE IV (08:20)
[2017-07-26] MEDS: D5W IV (08:20)
[2017-07-26] MEDS ORDERED: predniSONE 10 MG TAB PO (09:00)
[2017-07-26] MEDS: MORPHINE 2 MG/ML 1ML SYRINGE IV (10:15)
[2017-07-26] MEDS: PERCOCET 5MG/325MG TAB PO ×2 (10:51→16:53)
[2017-07-26 12:28] LABS: TYPE AND SCREEN 1
[2017-07-26] MEDS: FUROSEMIDE 40 MG/4 ML VIAL (J1940) IV ×2 (12:43→23:25)
[2017-07-26] MEDS: ATORVASTATIN 20 MG TAB PO (20:00)
[2017-07-26] MEDS: PANTOPRAZOLE 40MG TAB (PROTONIX) PO (20:01)
[2017-07-26] MEDS ORDERED: VANCOMYCIN HCL 1,000 MG, VIAL MATE ADAPTER 1 EACH in D5W 250 ML IV (21:00)
[2017-07-26 22:40] LABS: TYPE AND SCREEN 1
[2017-07-26] MEDS: CEFTRIAXONE SOD 1 GM in APPROPRIATE DILUENT 1 EA IV (23:25)
[2017-07-27 05:55] LABS: MEAN CORPUSCULAR HEMOGLOBIN 27.4 pg (27.0-33.0); MEAN CORPUSCULAR HGB CONC 33.3 g/dl (32.0-36.5); MEAN CORPUSCULAR VOLUME 82.3 fl (80.0-96.0); PLATELET COUNT, AUTOMATED 197 10^3/uL (150-450); RED CELL DISTRIBUTION WIDTH 14.3 % (11.5-14.5); WHITE BLOOD COUNT 12.1 10^3/uL (4.0-10.0)
[2017-07-27 06:41] LABS: ALBUMIN 1.2 GM/DL (3.2-5.2); ALBUMIN/GLOBULIN RATIO 0.43 (1.00-1.93); ALKALINE PHOSPHATASE 58 U/L (45-117); ALT/SGPT 26 U/L (12-78); ANION GAP 8 MEQ/L (8-16); AST/SGOT 34 U/L (7-37); BILIRUBIN,TOTAL 0.5 MG/DL (0.2-1.0); BLOOD UREA NITROGEN 34 MG/DL (7-18); CALCIUM LEVEL 7.1 MG/DL (8.5-10.1); CARBON DIOXIDE LEVEL 28 MEQ/L (21-32); CHLORIDE LEVEL 101 MEQ/L (98-107); CREATININE FOR GFR 1.55 MG/DL (0.70-1.30); GLUCOSE, FASTING 156 MG/DL (70-105); SODIUM LEVEL 137 MEQ/L (136-145)
[2017-07-27] MEDS: APIXABAN 5 MG TAB (ELIQUIS) PO ×2 (08:50→20:37)
[2017-07-27] MEDS: DOCUSATE SODIUM 100 MG CAP PO ×2 (08:50→20:36)
[2017-07-27] MEDS: METHYLPREDNISOLONE IV (09:22)
[2017-07-27] MEDS: D5W IV (09:22)
[2017-07-27] MEDS: PERCOCET 5MG/325MG TAB PO ×2 (09:23→14:22)
[2017-07-27] MEDS: MORPHINE 2 MG/ML 1ML SYRINGE IV ×2 (10:06→22:10)
[2017-07-27 11:03] LABS: TYPE AND SCREEN 1
[2017-07-27] MEDS: FUROSEMIDE 40 MG/4 ML VIAL (J1940) IV (11:27)
[2017-07-27] MEDS: NYSTATIN 500,000 U/5 ML SUSP UDC SS ×2 (13:30→18:24)
[2017-07-27] MEDS: VANCOMYCIN HCL 1,000 MG, VIAL MATE ADAPTER 1 EACH in D5W 250 ML IV (20:36)
[2017-07-27] MEDS: NEORAL 100 MG CAP (J7502)(C9438) PO (20:37)
[2017-07-27] MEDS: PANTOPRAZOLE 40MG TAB (PROTONIX) PO (20:37)
[2017-07-27] MEDS: ATORVASTATIN 20 MG TAB PO (20:37)
[2017-07-28] MEDS: CEFTRIAXONE SOD 1 GM in APPROPRIATE DILUENT 1 EA IV (00:13)
[2017-07-28] MEDS: NYSTATIN 500,000 U/5 ML SUSP UDC SS ×4 (00:13→17:27)
[2017-07-28] MEDS: MORPHINE 2 MG/ML 1ML SYRINGE IV ×2 (05:25→11:45)
[2017-07-28 05:26] LABS: MEAN CORPUSCULAR HEMOGLOBIN 26.9 pg (27.0-33.0); MEAN CORPUSCULAR HGB CONC 33.1 g/dl (32.0-36.5); MEAN CORPUSCULAR VOLUME 81.2 fl (80.0-96.0); PLATELET COUNT, AUTOMATED 231 10^3/uL (150-450); WHITE BLOOD COUNT 10.2 10^3/uL (4.0-10.0)
[2017-07-28 05:58] LABS: ALBUMIN/GLOBULIN RATIO 0.31 (1.00-1.93); ALKALINE PHOSPHATASE 102 U/L (45-117); ALT/SGPT 72 U/L (12-78); ANION GAP 7 MEQ/L (8-16); AST/SGOT 81 U/L (7-37); BILIRUBIN,TOTAL 0.5 MG/DL (0.2-1.0); BLOOD UREA NITROGEN 45 MG/DL (7-18); CALCIUM LEVEL 7.3 MG/DL (8.5-10.1); CARBON DIOXIDE LEVEL 31 MEQ/L (21-32); CHLORIDE LEVEL 99 MEQ/L (98-107); CREATININE FOR GFR 1.52 MG/DL (0.70-1.30); GLUCOSE, FASTING 145 MG/DL (70-105); SODIUM LEVEL 137 MEQ/L (136-145); TOTAL PROTEIN 3.8 GM/DL (6.4-8.2)
[2017-07-28 06:20] LABS: ALBUMIN 0.9 GM/DL (3.2-5.2)
[2017-07-28] MEDS: predniSONE 10 MG TAB PO (08:05)
[2017-07-28] MEDS: NEORAL 100 MG CAP (J7502)(C9438) PO ×2 (08:05→20:35)
[2017-07-28] MEDS: DOCUSATE SODIUM 100 MG CAP PO ×2 (08:05→20:34)
[2017-07-28] MEDS: APIXABAN 5 MG TAB (ELIQUIS) PO ×2 (08:06→20:34)
[2017-07-28] MEDS: TORSEMIDE 20 MG TAB PO (08:06)
[2017-07-28] MEDS: PERCOCET 5MG/325MG TAB PO ×2 (08:06→11:50)
[2017-07-28] MEDS ORDERED: predniSONE 20 MG TAB PO (09:00)
[2017-07-28] MEDS: FUROSEMIDE 40 MG/4 ML VIAL (J1940) IV (11:46)
[2017-07-28] MEDS: ATORVASTATIN 20 MG TAB PO (20:34)
[2017-07-28] MEDS: PANTOPRAZOLE 40MG TAB (PROTONIX) PO (20:35)
[2017-07-29] MEDS: NYSTATIN 500,000 U/5 ML SUSP UDC SS ×6 (00:23→23:15)
[2017-07-29] MEDS: CEFTRIAXONE SOD 1 GM in APPROPRIATE DILUENT 1 EA IV ×2 (00:23→23:15)
[2017-07-29 05:06] LABS: IONIZED CALCIUM 4.2 MG/DL (4.5-5.3)
[2017-07-29 05:07] LABS: MEAN CORPUSCULAR HEMOGLOBIN 27.1 pg (27.0-33.0); MEAN CORPUSCULAR HGB CONC 33.4 g/dl (32.0-36.5); PLATELET COUNT, AUTOMATED 305 10^3/uL (150-450); RED CELL DISTRIBUTION WIDTH 13.8 % (11.5-14.5); WHITE BLOOD COUNT 6.5 10^3/uL (4.0-10.0)
[2017-07-29 05:40] LABS: MAGNESIUM LEVEL 2.6 MG/DL (1.8-2.4); PHOSPHORUS LEVEL 3.6 MG/DL (2.5-4.9)
[2017-07-29 05:42] LABS: ALBUMIN 0.8 GM/DL (3.2-5.2); ALBUMIN/GLOBULIN RATIO 0.26 (1.00-1.93); ALKALINE PHOSPHATASE 123 U/L (45-117); ALT/SGPT 127 U/L (12-78); ANION GAP 9 MEQ/L (8-16); AST/SGOT 109 U/L (7-37); BILIRUBIN,TOTAL 0.3 MG/DL (0.2-1.0); BLOOD UREA NITROGEN 57 MG/DL (7-18); CALCIUM LEVEL 6.9 MG/DL (8.5-10.1); CARBON DIOXIDE LEVEL 28 MEQ/L (21-32); CHLORIDE LEVEL 101 MEQ/L (98-107); CREATININE FOR GFR 1.84 MG/DL (0.70-1.30); GLUCOSE, FASTING 113 MG/DL (70-105); POTASSIUM SERUM 3.7 MEQ/L (3.5-5.1); SODIUM LEVEL 138 MEQ/L (136-145); TOTAL PROTEIN 3.9 GM/DL (6.4-8.2)
[2017-07-29] MEDS: APIXABAN 5 MG TAB (ELIQUIS) PO ×2 (08:00→21:57)
[2017-07-29] MEDS: DOCUSATE SODIUM 100 MG CAP PO ×2 (08:00→21:56)
[2017-07-29] MEDS: FUROSEMIDE 40 MG/4 ML VIAL (J1940) IV (08:00)
[2017-07-29] MEDS: NEORAL 100 MG CAP (J7502)(C9438) PO ×2 (08:01→21:57)
[2017-07-29] MEDS: predniSONE 10 MG TAB PO (08:01)
[2017-07-29] MEDS: MORPHINE 2 MG/ML 1ML SYRINGE IV (10:04)
[2017-07-29 10:40] LABS: VANCOMYCIN RANDOM 2.8 UG/ML
[2017-07-29] MEDS: CALCIUM GLUCONATE 1,000 MG in NS 100 ML IV (11:12)
[2017-07-29] MEDS: VANCOMYCIN HCL 1,000 MG, VIAL MATE ADAPTER 1 EACH in D5W 250 ML IV (12:36)
[2017-07-29] MEDS: PERCOCET 5MG/325MG TAB PO (17:06)
[2017-07-29] MEDS: ATORVASTATIN 20 MG TAB PO (21:56)
[2017-07-29] MEDS: PANTOPRAZOLE 40MG TAB (PROTONIX) PO (21:57)
[2017-07-30] MEDS: NYSTATIN 500,000 U/5 ML SUSP UDC SS ×5 (05:17→23:42)
[2017-07-30 05:30] LABS: MEAN CORPUSCULAR HEMOGLOBIN 27.1 pg (27.0-33.0); MEAN CORPUSCULAR HGB CONC 34.1 g/dl (32.0-36.5); MEAN CORPUSCULAR VOLUME 79.6 fl (80.0-96.0); PLATELET COUNT, AUTOMATED 361 10^3/uL (150-450); RED CELL DISTRIBUTION WIDTH 13.6 % (11.5-14.5); WHITE BLOOD COUNT 5.4 10^3/uL (4.0-10.0)
[2017-07-30 06:09] LABS: ALBUMIN 0.7 GM/DL (3.2-5.2); ALBUMIN/GLOBULIN RATIO 0.23 (1.00-1.93); ALKALINE PHOSPHATASE 129 U/L (45-117); ALT/SGPT 133 U/L (12-78); ANION GAP 8 MEQ/L (8-16); AST/SGOT 87 U/L (7-37); BILIRUBIN,TOTAL 0.3 MG/DL (0.2-1.0); BLOOD UREA NITROGEN 66 MG/DL (7-18); CALCIUM LEVEL 6.7 MG/DL (8.5-10.1); CARBON DIOXIDE LEVEL 28 MEQ/L (21-32); CHLORIDE LEVEL 101 MEQ/L (98-107); CREATININE FOR GFR 2.21 MG/DL (0.70-1.30); GLUCOSE, FASTING 108 MG/DL (70-105); POTASSIUM SERUM 3.4 MEQ/L (3.5-5.1); SODIUM LEVEL 137 MEQ/L (136-145); TOTAL PROTEIN 3.7 GM/DL (6.4-8.2)
[2017-07-30] MEDS: NEORAL 100 MG CAP (J7502)(C9438) PO (09:25)
[2017-07-30] MEDS: DOCUSATE SODIUM 100 MG CAP PO ×2 (09:25→22:18)
[2017-07-30] MEDS: predniSONE 10 MG TAB PO (09:26)
[2017-07-30] MEDS: APIXABAN 5 MG TAB (ELIQUIS) PO ×2 (09:26→22:18)
[2017-07-30] MEDS: PERCOCET 5MG/325MG TAB PO (09:49)
[2017-07-30] MEDS: POTASSIUM CHLORIDE 10 MEQ SR TABLET PO (10:43)
[2017-07-30] MEDS: CALCIUM GLUCONATE 1,000 MG in D5W MINI-BAG PLUS 100 ML IV (10:44)
[2017-07-30] MEDS: FUROSEMIDE 20 MG/2 ML VIAL (J1940) IV (12:15)
[2017-07-30] MEDS: NEORAL 25 MG CAP (J7515) PO (22:17)
[2017-07-30] MEDS: ATORVASTATIN 20 MG TAB PO (22:18)
[2017-07-30] MEDS: PANTOPRAZOLE 40MG TAB (PROTONIX) PO (22:18)
[2017-07-31] MEDS: NYSTATIN 500,000 U/5 ML SUSP UDC SS ×4 (05:25→17:09)
[2017-07-31 05:53] LABS: IONIZED CALCIUM 4.2 MG/DL (4.5-5.3)
[2017-07-31 06:00] LABS: MEAN CORPUSCULAR HEMOGLOBIN 27.2 pg (27.0-33.0); MEAN CORPUSCULAR HGB CONC 34.3 g/dl (32.0-36.5); MEAN CORPUSCULAR VOLUME 79.3 fl (80.0-96.0); PLATELET COUNT, AUTOMATED 440 10^3/uL (150-450); RED CELL DISTRIBUTION WIDTH 13.5 % (11.5-14.5); WHITE BLOOD COUNT 7.4 10^3/uL (4.0-10.0)
[2017-07-31 06:13] LABS: ADD MANUAL DIFFER YES; DIFF SLIDE NUMBER 84; POS COUNT POS FLAG; POSITIVE MORPH POS FLAG
[2017-07-31 06:16] LABS: MAGNESIUM LEVEL 2.6 MG/DL (1.8-2.4)
[2017-07-31 06:20] LABS: ALBUMIN 0.7 GM/DL (3.2-5.2); ALBUMIN/GLOBULIN RATIO 0.24 (1.00-1.93); ALKALINE PHOSPHATASE 108 U/L (45-117); ALT/SGPT 80 U/L (12-78); ANION GAP 8 MEQ/L (8-16); AST/SGOT 44 U/L (7-37); BILIRUBIN,TOTAL 0.3 MG/DL (0.2-1.0); BLOOD UREA NITROGEN 73 MG/DL (7-18); CALCIUM LEVEL 6.5 MG/DL (8.5-10.1); CARBON DIOXIDE LEVEL 28 MEQ/L (21-32); CHLORIDE LEVEL 101 MEQ/L (98-107); CREATININE FOR GFR 2.27 MG/DL (0.70-1.30); GLUCOSE, FASTING 91 MG/DL (70-105); POTASSIUM SERUM 3.8 MEQ/L (3.5-5.1); SODIUM LEVEL 137 MEQ/L (136-145); TOTAL PROTEIN 3.6 GM/DL (6.4-8.2)
[2017-07-31 07:49] LABS: ANISOCYTOSIS 1+
[2017-07-31] MEDS: CALCIUM GLUCONATE 1,000 MG in D5W MINI-BAG PLUS 100 ML IV (09:16)
[2017-07-31] MEDS: APIXABAN 5 MG TAB (ELIQUIS) PO ×2 (09:17→21:09)
[2017-07-31] MEDS: predniSONE 10 MG TAB PO (09:17)
[2017-07-31] MEDS: DOCUSATE SODIUM 100 MG CAP PO ×2 (09:17→21:09)
[2017-07-31] MEDS: NEORAL 25 MG CAP (J7515) PO ×2 (09:18→21:09)
[2017-07-31 12:19] LABS: TYPE AND SCREEN 1
[2017-07-31] MEDS: ATORVASTATIN 20 MG TAB PO (21:09)
[2017-07-31] MEDS: PANTOPRAZOLE 40MG TAB (PROTONIX) PO (21:09)
[2017-08-01 00:06] LABS: CYCLOSPORINE LABCORP 116 ng/mL (100-400)
[2017-08-01] MEDS: NYSTATIN 500,000 U/5 ML SUSP UDC SS ×4 (05:14→17:05)
[2017-08-01] MEDS ORDERED: SODIUM CHLORIDE 0.9% INJ 10 ML SYR IV (05:45)
[2017-08-01] MEDS: SODIUM CHLORIDE 0.9% INJ 10 ML SYR IV ×3 (06:02→21:32)
[2017-08-01 06:10] LABS: EOS % 0.2 % (0.0-3.0); IMMATURE GRANULOCYTE # 0.3 10^3/uL (0-0); IMMATURE GRANULOCYTE % 4.1 % (0-0); LYMPH # 1.7 10^3/uL (1.5-6.5); MEAN CORPUSCULAR HEMOGLOBIN 27.3 pg (27.0-33.0); MEAN CORPUSCULAR HGB CONC 33.9 g/dl (32.0-36.5); MEAN CORPUSCULAR VOLUME 80.8 fl (80.0-96.0); MONO # 0.7 10^3/uL (0.0-0.8); MONO % 8.2 % (0.0-5.0); NEUTROPHILS # 5.6 10^3/uL (1.8-7.7); NEUTROPHILS % 67.5 % (36.0-66.0); PLATELET COUNT, AUTOMATED 514 10^3/uL (150-450); RED CELL DISTRIBUTION WIDTH 13.6 % (11.5-14.5); WHITE BLOOD COUNT 8.3 10^3/uL (4.0-10.0)
[2017-08-01 06:44] LABS: ALBUMIN/GLOBULIN RATIO 0.34 (1.00-1.93); ALKALINE PHOSPHATASE 98 U/L (45-117); ALT/SGPT 61 U/L (12-78); ANION GAP 9 MEQ/L (8-16); AST/SGOT 36 U/L (7-37); BILIRUBIN,TOTAL 0.3 MG/DL (0.2-1.0); BLOOD UREA NITROGEN 68 MG/DL (7-18); CALCIUM LEVEL 6.8 MG/DL (8.5-10.1); CARBON DIOXIDE LEVEL 28 MEQ/L (21-32); CHLORIDE LEVEL 103 MEQ/L (98-107); CREATININE FOR GFR 2.27 MG/DL (0.70-1.30); GLUCOSE, FASTING 108 MG/DL (70-105); POTASSIUM SERUM 3.8 MEQ/L (3.5-5.1); SODIUM LEVEL 140 MEQ/L (136-145); TOTAL PROTEIN 3.9 GM/DL (6.4-8.2)
[2017-08-01] MEDS: NEORAL 25 MG CAP (J7515) PO ×2 (08:31→21:31)
[2017-08-01] MEDS: predniSONE 10 MG TAB PO (08:32)
[2017-08-01] MEDS: APIXABAN 5 MG TAB (ELIQUIS) PO ×2 (08:32→21:31)
[2017-08-01] MEDS: DOCUSATE SODIUM 100 MG CAP PO ×2 (08:32→21:31)
[2017-08-01] MEDS: BACTRIM 160MG/800MG DS TAB PO (10:07)
[2017-08-01] MEDS: ATORVASTATIN 20 MG TAB PO (21:30)
[2017-08-01] MEDS: PANTOPRAZOLE 40MG TAB (PROTONIX) PO (21:31)
[2017-08-01] MEDS: PERCOCET 5MG/325MG TAB PO (23:34)
[2017-08-02] MEDS: SODIUM CHLORIDE 0.9% INJ 10 ML SYR IV ×3 (05:40→20:56)
[2017-08-02 05:54] LABS: IONIZED CALCIUM 4.4 MG/DL (4.5-5.3)
[2017-08-02 05:59] LABS: BASO % 0.1 % (0.0-1.0); EOS % 0.2 % (0.0-3.0); IMMATURE GRANULOCYTE # 0.2 10^3/uL (0-0); IMMATURE GRANULOCYTE % 1.8 % (0-0); LYMPH # 1.9 10^3/uL (1.5-6.5); LYMPH % 21.2 % (24.0-44.0); MEAN CORPUSCULAR HEMOGLOBIN 27.6 pg (27.0-33.0); MEAN CORPUSCULAR HGB CONC 33.7 g/dl (32.0-36.5); MEAN CORPUSCULAR VOLUME 81.9 fl (80.0-96.0); MONO # 0.8 10^3/uL (0.0-0.8); MONO % 9.3 % (0.0-5.0); NEUTROPHILS # 5.9 10^3/uL (1.8-7.7); NEUTROPHILS % 67.4 % (36.0-66.0); PLATELET COUNT, AUTOMATED 568 10^3/uL (150-450); RED CELL DISTRIBUTION WIDTH 13.8 % (11.5-14.5); WHITE BLOOD COUNT 8.8 10^3/uL (4.0-10.0)
[2017-08-02] MEDS: NYSTATIN 500,000 U/5 ML SUSP UDC SS ×4 (06:00→17:29)
[2017-08-02 06:41] LABS: MAGNESIUM LEVEL 2.7 MG/DL (1.8-2.4); URIC ACID 10.2 MG/DL (3.5-7.2)
[2017-08-02] MEDS: APIXABAN 5 MG TAB (ELIQUIS) PO ×2 (08:15→20:55)
[2017-08-02] MEDS: NEORAL 25 MG CAP (J7515) PO ×2 (08:15→20:54)
[2017-08-02] MEDS: predniSONE 10 MG TAB PO (08:15)
[2017-08-02] MEDS: DOCUSATE SODIUM 100 MG CAP PO ×2 (08:15→20:54)
[2017-08-02 09:34] LABS: BLOOD UREA NITROGEN 70 MG/DL (7-18); CREATININE FOR GFR 2.25 MG/DL (0.70-1.30); GLUCOSE, FASTING 90 MG/DL (70-105); SODIUM LEVEL 140 MEQ/L (136-145)
[2017-08-02 09:35] LABS: ALBUMIN 0.8 GM/DL (3.2-5.2); ANION GAP 6 MEQ/L (8-16); CARBON DIOXIDE LEVEL 30 MEQ/L (21-32); CHLORIDE LEVEL 104 MEQ/L (98-107); PHOSPHORUS LEVEL 3.4 MG/DL (2.5-4.9); POTASSIUM SERUM 3.8 MEQ/L (3.5-5.1)
[2017-08-02] MEDS: FEBUXOSTAT 40 MG TABLET (ULORIC) PO (13:05)
[2017-08-02] MEDS: ATORVASTATIN 20 MG TAB PO (20:54)
[2017-08-02] MEDS: PANTOPRAZOLE 40MG TAB (PROTONIX) PO (20:54)
[2017-08-03] MEDS: NYSTATIN 500,000 U/5 ML SUSP UDC SS ×5 (06:00→23:34)
[2017-08-03] MEDS: SODIUM CHLORIDE 0.9% INJ 10 ML SYR IV ×3 (06:00→21:08)
[2017-08-03 06:27] LABS: EOS % 0.4 % (0.0-3.0); IMMATURE GRANULOCYTE # 0.1 10^3/uL (0-0); IMMATURE GRANULOCYTE % 1.6 % (0-0); LYMPH # 2.2 10^3/uL (1.5-6.5); LYMPH % 27.3 % (24.0-44.0); MEAN CORPUSCULAR HEMOGLOBIN 27.5 pg (27.0-33.0); MEAN CORPUSCULAR HGB CONC 33.1 g/dl (32.0-36.5); MEAN CORPUSCULAR VOLUME 83.1 fl (80.0-96.0); MONO # 0.8 10^3/uL (0.0-0.8); MONO % 10.2 % (0.0-5.0); NEUTROPHILS # 4.9 10^3/uL (1.8-7.7); NEUTROPHILS % 60.5 % (36.0-66.0); PLATELET COUNT, AUTOMATED 580 10^3/uL (150-450); WHITE BLOOD COUNT 8.2 10^3/uL (4.0-10.0)
[2017-08-03 07:00] LABS: ALBUMIN 0.8 GM/DL (3.2-5.2); ANION GAP 7 MEQ/L (8-16); BLOOD UREA NITROGEN 52 MG/DL (7-18); CALCIUM LEVEL 6.6 MG/DL (8.5-10.1); CARBON DIOXIDE LEVEL 28 MEQ/L (21-32); CHLORIDE LEVEL 108 MEQ/L (98-107); CREATININE FOR GFR 2.05 MG/DL (0.70-1.30); GLUCOSE, FASTING 90 MG/DL (70-105); PHOSPHORUS LEVEL 3.3 MG/DL (2.5-4.9); POTASSIUM SERUM 4.1 MEQ/L (3.5-5.1); SODIUM LEVEL 143 MEQ/L (136-145)
[2017-08-03] MEDS: NEORAL 25 MG CAP (J7515) PO ×2 (09:02→21:07)
[2017-08-03] MEDS: APIXABAN 5 MG TAB (ELIQUIS) PO ×2 (09:03→21:08)
[2017-08-03] MEDS: FEBUXOSTAT 40 MG TABLET (ULORIC) PO (09:03)
[2017-08-03] MEDS: DOCUSATE SODIUM 100 MG CAP PO ×2 (09:04→21:08)
[2017-08-03] MEDS: predniSONE 10 MG TAB PO (09:04)
[2017-08-03] MEDS: FUROSEMIDE 20 MG/2 ML VIAL (J1940) IV (19:43)
[2017-08-03] MEDS: CALCIUM GLUCONATE 1,000 MG in D5W MINI-BAG PLUS 100 ML IV (19:43)
[2017-08-03] MEDS: ATORVASTATIN 20 MG TAB PO (21:08)
[2017-08-03] MEDS: PANTOPRAZOLE 40MG TAB (PROTONIX) PO (21:08)
[2017-08-04] MEDS: NYSTATIN 500,000 U/5 ML SUSP UDC SS ×3 (05:58→18:12)
[2017-08-04] MEDS: SODIUM CHLORIDE 0.9% INJ 10 ML SYR IV ×4 (06:21→21:58)
[2017-08-04 06:37] LABS: IONIZED CALCIUM 4.4 MG/DL (4.5-5.3)
[2017-08-04 06:41] LABS: BASO % 0.1 % (0.0-1.0); EOS % 0.2 % (0.0-3.0); IMMATURE GRANULOCYTE # 0.1 10^3/uL (0-0); IMMATURE GRANULOCYTE % 0.9 % (0-0); LYMPH # 2.4 10^3/uL (1.5-6.5); LYMPH % 25.8 % (24.0-44.0); MEAN CORPUSCULAR HEMOGLOBIN 27.5 pg (27.0-33.0); MEAN CORPUSCULAR HGB CONC 32.7 g/dl (32.0-36.5); MEAN CORPUSCULAR VOLUME 84.2 fl (80.0-96.0); MONO # 0.8 10^3/uL (0.0-0.8); MONO % 8.8 % (0.0-5.0); NEUTROPHILS % 64.2 % (36.0-66.0); PLATELET COUNT, AUTOMATED 561 10^3/uL (150-450); RED CELL DISTRIBUTION WIDTH 14.2 % (11.5-14.5); WHITE BLOOD COUNT 9.4 10^3/uL (4.0-10.0)
[2017-08-04 07:21] LABS: ALBUMIN 0.8 GM/DL (3.2-5.2); ANION GAP 6 MEQ/L (8-16); BLOOD UREA NITROGEN 42 MG/DL (7-18); CALCIUM LEVEL 6.7 MG/DL (8.5-10.1); CARBON DIOXIDE LEVEL 29 MEQ/L (21-32); CHLORIDE LEVEL 110 MEQ/L (98-107); GLUCOSE, FASTING 98 MG/DL (70-105); PHOSPHORUS LEVEL 2.9 MG/DL (2.5-4.9); POTASSIUM SERUM 4.4 MEQ/L (3.5-5.1); SODIUM LEVEL 145 MEQ/L (136-145)
[2017-08-04] MEDS: BACTRIM 160MG/800MG DS TAB PO (08:50)
[2017-08-04] MEDS: FEBUXOSTAT 40 MG TABLET (ULORIC) PO (08:50)
[2017-08-04] MEDS: predniSONE 10 MG TAB PO (08:51)
[2017-08-04] MEDS: APIXABAN 5 MG TAB (ELIQUIS) PO ×2 (08:51→21:55)
[2017-08-04] MEDS: DOCUSATE SODIUM 100 MG CAP PO ×2 (08:51→21:55)
[2017-08-04] MEDS: NEORAL 25 MG CAP (J7515) PO ×2 (08:51→21:55)
[2017-08-04] MEDS ORDERED: SODIUM CHLORIDE 0.9% INJ 10 ML SYR IV (13:45)
[2017-08-04] MEDS: PANTOPRAZOLE 40MG TAB (PROTONIX) PO (21:55)
[2017-08-04] MEDS: ATORVASTATIN 20 MG TAB PO (21:55)
[2017-08-05 00:06] LABS: CYCLOSPORINE LABCORP 89 ng/mL (100-400)
[2017-08-05] MEDS: NYSTATIN 500,000 U/5 ML SUSP UDC SS ×5 (02:11→23:21)
[2017-08-05] MEDS: SODIUM CHLORIDE 0.9% INJ 10 ML SYR IV ×5 (05:28→20:56)
[2017-08-05 05:38] LABS: EOS % 0.1 % (0.0-3.0); IMMATURE GRANULOCYTE # 0.1 10^3/uL (0-0); IMMATURE GRANULOCYTE % 0.7 % (0-0); LYMPH # 2.4 10^3/uL (1.5-6.5); LYMPH % 23.7 % (24.0-44.0); MEAN CORPUSCULAR HEMOGLOBIN 27.4 pg (27.0-33.0); MEAN CORPUSCULAR HGB CONC 32.6 g/dl (32.0-36.5); MEAN CORPUSCULAR VOLUME 83.9 fl (80.0-96.0); MONO # 0.8 10^3/uL (0.0-0.8); MONO % 8.1 % (0.0-5.0); NEUTROPHILS # 6.9 10^3/uL (1.8-7.7); NEUTROPHILS % 67.4 % (36.0-66.0); PLATELET COUNT, AUTOMATED 572 10^3/uL (150-450); RED CELL DISTRIBUTION WIDTH 14.4 % (11.5-14.5); WHITE BLOOD COUNT 10.3 10^3/uL (4.0-10.0)
[2017-08-05 06:53] LABS: ALBUMIN 0.9 GM/DL (3.2-5.2); ANION GAP 2 MEQ/L (8-16); BLOOD UREA NITROGEN 35 MG/DL (7-18); CARBON DIOXIDE LEVEL 32 MEQ/L (21-32); CHLORIDE LEVEL 110 MEQ/L (98-107); CREATININE FOR GFR 1.47 MG/DL (0.70-1.30); GLUCOSE, FASTING 85 MG/DL (70-105); PHOSPHORUS LEVEL 3.3 MG/DL (2.5-4.9); POTASSIUM SERUM 4.5 MEQ/L (3.5-5.1); SODIUM LEVEL 144 MEQ/L (136-145)
[2017-08-05 07:27] LABS: IONIZED CALCIUM 4.5 MG/DL (4.5-5.3)
[2017-08-05] MEDS: NEORAL 25 MG CAP (J7515) PO ×2 (09:09→20:55)
[2017-08-05] MEDS: predniSONE 10 MG TAB PO (09:09)
[2017-08-05] MEDS: DOCUSATE SODIUM 100 MG CAP PO ×2 (09:10→20:53)
[2017-08-05] MEDS: FEBUXOSTAT 40 MG TABLET (ULORIC) PO (09:10)
[2017-08-05] MEDS: APIXABAN 5 MG TAB (ELIQUIS) PO ×2 (09:10→20:53)
[2017-08-05 09:22] LABS: URIC ACID 4.7 MG/DL (3.5-7.2)
[2017-08-05] MEDS: FUROSEMIDE 20 MG/2 ML VIAL (J1940) IV (12:56)
[2017-08-05] MEDS: PANTOPRAZOLE 40MG TAB (PROTONIX) PO (20:53)
[2017-08-05] MEDS: ATORVASTATIN 20 MG TAB PO (20:53)
[2017-08-06] MEDS: NYSTATIN 500,000 U/5 ML SUSP UDC SS ×2 (04:14→13:10)
[2017-08-06] MEDS: SODIUM CHLORIDE 0.9% INJ 10 ML SYR IV ×5 (04:15→20:23)
[2017-08-06 04:31] LABS: EOS % 0.2 % (0.0-3.0); IMMATURE GRANULOCYTE # 0.1 10^3/uL (0-0); IMMATURE GRANULOCYTE % 0.6 % (0-0); LYMPH # 2.2 10^3/uL (1.5-6.5); LYMPH % 17.5 % (24.0-44.0); MEAN CORPUSCULAR HEMOGLOBIN 27.3 pg (27.0-33.0); MEAN CORPUSCULAR HGB CONC 32.6 g/dl (32.0-36.5); MEAN CORPUSCULAR VOLUME 83.9 fl (80.0-96.0); NEUTROPHILS # 9.4 10^3/uL (1.8-7.7); NEUTROPHILS % 73.7 % (36.0-66.0); PLATELET COUNT, AUTOMATED 520 10^3/uL (150-450); RED CELL DISTRIBUTION WIDTH 14.6 % (11.5-14.5); WHITE BLOOD COUNT 12.8 10^3/uL (4.0-10.0)
[2017-08-06 04:35] LABS: IONIZED CALCIUM 4.4 MG/DL (4.5-5.3)
[2017-08-06 05:38] LABS: ALBUMIN 0.8 GM/DL (3.2-5.2); ANION GAP 7 MEQ/L (8-16); BLOOD UREA NITROGEN 33 MG/DL (7-18); CALCIUM LEVEL 6.7 MG/DL (8.5-10.1); CARBON DIOXIDE LEVEL 29 MEQ/L (21-32); CHLORIDE LEVEL 109 MEQ/L (98-107); CHOLESTEROL LEVEL 363 MG/DL (<200); CREATININE FOR GFR 1.23 MG/DL (0.70-1.30); GLUCOSE, FASTING 105 MG/DL (70-105); PHOSPHORUS LEVEL 3.1 MG/DL (2.5-4.9); POTASSIUM SERUM 4.4 MEQ/L (3.5-5.1); SODIUM LEVEL 145 MEQ/L (136-145); TRIGLYCERIDES LEVEL 220 MG/DL (<150)
[2017-08-06] MEDS: predniSONE 10 MG TAB PO (09:06)
[2017-08-06] MEDS: NEORAL 25 MG CAP (J7515) PO ×2 (09:06→20:21)
[2017-08-06] MEDS: BACTRIM 160MG/800MG DS TAB PO (09:06)
[2017-08-06] MEDS: DOCUSATE SODIUM 100 MG CAP PO ×2 (09:06→20:18)
[2017-08-06] MEDS: APIXABAN 5 MG TAB (ELIQUIS) PO ×2 (09:06→20:18)
[2017-08-06] MEDS: FEBUXOSTAT 40 MG TABLET (ULORIC) PO (09:06)
[2017-08-06] MEDS: CALCIUM GLUCONATE 1,000 MG in D5W MINI-BAG PLUS 100 ML IV (13:10)
[2017-08-06] MEDS: FERROUS SULFATE 325MG TAB PO ×2 (13:10→20:18)
[2017-08-06] MEDS: PANTOPRAZOLE 40MG TAB (PROTONIX) PO (20:18)
[2017-08-06] MEDS: ATORVASTATIN 20 MG TAB PO (20:18)
[2017-08-07] MEDS: SODIUM CHLORIDE 0.9% INJ 10 ML SYR IV ×4 (06:20→17:40)
[2017-08-07 06:41] LABS: BASO % 0.1 % (0.0-1.0); EOS % 0.2 % (0.0-3.0); IMMATURE GRANULOCYTE # 0.1 10^3/uL (0-0); IMMATURE GRANULOCYTE % 0.6 % (0-0); LYMPH # 2.5 10^3/uL (1.5-6.5); LYMPH % 21.8 % (24.0-44.0); MEAN CORPUSCULAR HEMOGLOBIN 27.8 pg (27.0-33.0); MEAN CORPUSCULAR HGB CONC 32.3 g/dl (32.0-36.5); MEAN CORPUSCULAR VOLUME 85.8 fl (80.0-96.0); MONO # 0.8 10^3/uL (0.0-0.8); MONO % 7.1 % (0.0-5.0); NEUTROPHILS % 70.2 % (36.0-66.0); PLATELET COUNT, AUTOMATED 466 10^3/uL (150-450); RED CELL DISTRIBUTION WIDTH 14.7 % (11.5-14.5); WHITE BLOOD COUNT 11.3 10^3/uL (4.0-10.0)
[2017-08-07 06:55] LABS: ALBUMIN 0.8 GM/DL (3.2-5.2); ANION GAP 5 MEQ/L (8-16); BLOOD UREA NITROGEN 26 MG/DL (7-18); CALCIUM LEVEL 6.7 MG/DL (8.5-10.1); CARBON DIOXIDE LEVEL 30 MEQ/L (21-32); CHLORIDE LEVEL 110 MEQ/L (98-107); FERRITIN 185 NG/ML (26-388); GLUCOSE, FASTING 99 MG/DL (70-105); MAGNESIUM LEVEL 1.6 MG/DL (1.8-2.4); PERCENT SATURATION 46.5 % (19.7-50.0); PHOSPHORUS LEVEL 3.1 MG/DL (2.5-4.9); POTASSIUM SERUM 4.1 MEQ/L (3.5-5.1); SODIUM LEVEL 145 MEQ/L (136-145); TOTAL IRON BINDING CAPACITY 71 UG/DL (250-450)
[2017-08-07] MEDS: FEBUXOSTAT 40 MG TABLET (ULORIC) PO (09:03)
[2017-08-07] MEDS: FERROUS SULFATE 325MG TAB PO ×2 (09:03→20:10)
[2017-08-07] MEDS: MAG SULF 1GM/100ML (MAG RUN) 1 GM in APPROPRIATE DILUENT 1 EA IV (09:03)
[2017-08-07] MEDS: DOCUSATE SODIUM 100 MG CAP PO ×2 (09:04→20:10)
[2017-08-07] MEDS: APIXABAN 5 MG TAB (ELIQUIS) PO ×2 (09:04→20:10)
[2017-08-07] MEDS: predniSONE 10 MG TAB PO (09:04)
[2017-08-07] MEDS: NYSTATIN 500,000 U/5 ML SUSP UDC SS (09:04)
[2017-08-07] MEDS: NEORAL 25 MG CAP (J7515) PO (09:04)
[2017-08-07] MEDS: NEORAL 100 MG CAP (J7502)(C9438) PO (20:10)
[2017-08-07] MEDS: ATORVASTATIN 20 MG TAB PO (20:10)
[2017-08-07] MEDS: PANTOPRAZOLE 40MG TAB (PROTONIX) PO (20:10)
[2017-08-08] MEDS: SODIUM CHLORIDE 0.9% INJ 10 ML SYR IV ×2 (05:13→17:34)
[2017-08-08 05:25] LABS: BASO % 0.1 % (0.0-1.0); EOS % 0.3 % (0.0-3.0); IMMATURE GRANULOCYTE # 0.1 10^3/uL (0-0); IMMATURE GRANULOCYTE % 0.6 % (0-0); LYMPH # 2.4 10^3/uL (1.5-6.5); LYMPH % 21.8 % (24.0-44.0); MEAN CORPUSCULAR HEMOGLOBIN 27.7 pg (27.0-33.0); MEAN CORPUSCULAR HGB CONC 32.4 g/dl (32.0-36.5); MEAN CORPUSCULAR VOLUME 85.5 fl (80.0-96.0); MONO # 0.7 10^3/uL (0.0-0.8); NEUTROPHILS # 7.8 10^3/uL (1.8-7.7); NEUTROPHILS % 71.2 % (36.0-66.0); PLATELET COUNT, AUTOMATED 404 10^3/uL (150-450); RED CELL DISTRIBUTION WIDTH 14.7 % (11.5-14.5); WHITE BLOOD COUNT 10.9 10^3/uL (4.0-10.0)
[2017-08-08 06:50] LABS: ALBUMIN 0.8 GM/DL (3.2-5.2); ANION GAP 8 MEQ/L (8-16); BLOOD UREA NITROGEN 24 MG/DL (7-18); CALCIUM LEVEL 6.9 MG/DL (8.5-10.1); CARBON DIOXIDE LEVEL 28 MEQ/L (21-32); CHLORIDE LEVEL 110 MEQ/L (98-107); CREATININE FOR GFR 0.93 MG/DL (0.70-1.30); GLUCOSE, FASTING 95 MG/DL (70-105); PHOSPHORUS LEVEL 3.7 MG/DL (2.5-4.9); POTASSIUM SERUM 4.1 MEQ/L (3.5-5.1); SODIUM LEVEL 146 MEQ/L (136-145)
[2017-08-08] MEDS: NYSTATIN 500,000 U/5 ML SUSP UDC SS (10:05)
[2017-08-08] MEDS: DOCUSATE SODIUM 100 MG CAP PO ×2 (10:05→20:32)
[2017-08-08] MEDS: BACTRIM 160MG/800MG DS TAB PO (10:05)
[2017-08-08] MEDS: NEORAL 100 MG CAP (J7502)(C9438) PO ×2 (10:06→20:32)
[2017-08-08] MEDS: predniSONE 10 MG TAB PO (10:06)
[2017-08-08] MEDS: APIXABAN 5 MG TAB (ELIQUIS) PO ×2 (10:06→20:32)
[2017-08-08] MEDS: FERROUS SULFATE 325MG TAB PO ×2 (10:06→20:32)
[2017-08-08] MEDS: ATORVASTATIN 20 MG TAB PO (20:32)
[2017-08-08] MEDS: PANTOPRAZOLE 40MG TAB (PROTONIX) PO (20:32)
[2017-08-09 00:09] LABS: CYCLOSPORINE LABCORP 77 ng/mL (100-400)
[2017-08-09] MEDS: SODIUM CHLORIDE 0.9% INJ 10 ML SYR IV ×2 (05:24→17:08)
[2017-08-09 05:37] LABS: BASO % 0.1 % (0.0-1.0); EOS % 0.2 % (0.0-3.0); IMMATURE GRANULOCYTE % 0.4 % (0-0); LYMPH # 2.2 10^3/uL (1.5-6.5); MEAN CORPUSCULAR HEMOGLOBIN 27.1 pg (27.0-33.0); MEAN CORPUSCULAR HGB CONC 32.1 g/dl (32.0-36.5); MEAN CORPUSCULAR VOLUME 84.5 fl (80.0-96.0); MONO # 0.6 10^3/uL (0.0-0.8); MONO % 5.3 % (0.0-5.0); NEUTROPHILS # 8.1 10^3/uL (1.8-7.7); PLATELET COUNT, AUTOMATED 397 10^3/uL (150-450); RED CELL DISTRIBUTION WIDTH 14.7 % (11.5-14.5); WHITE BLOOD COUNT 10.9 10^3/uL (4.0-10.0)
[2017-08-09 06:46] LABS: MAGNESIUM LEVEL 1.6 MG/DL (1.8-2.4)
[2017-08-09 06:51] LABS: ALBUMIN 0.9 GM/DL (3.2-5.2); ANION GAP 6 MEQ/L (8-16); BLOOD UREA NITROGEN 18 MG/DL (7-18); CALCIUM LEVEL 7.2 MG/DL (8.5-10.1); CARBON DIOXIDE LEVEL 29 MEQ/L (21-32); CHLORIDE LEVEL 109 MEQ/L (98-107); CREATININE FOR GFR 0.88 MG/DL (0.70-1.30); GLUCOSE, FASTING 88 MG/DL (70-105); PHOSPHORUS LEVEL 4.2 MG/DL (2.5-4.9); POTASSIUM SERUM 3.9 MEQ/L (3.5-5.1); SODIUM LEVEL 144 MEQ/L (136-145)
[2017-08-09] MEDS: predniSONE 10 MG TAB PO (08:27)
[2017-08-09] MEDS: NYSTATIN 500,000 U/5 ML SUSP UDC SS (08:27)
[2017-08-09] MEDS: FERROUS SULFATE 325MG TAB PO ×2 (08:28→21:23)
[2017-08-09] MEDS: NEORAL 100 MG CAP (J7502)(C9438) PO ×2 (08:28→21:23)
[2017-08-09] MEDS: APIXABAN 5 MG TAB (ELIQUIS) PO ×2 (08:28→21:23)
[2017-08-09] MEDS: DOCUSATE SODIUM 100 MG CAP PO ×2 (08:28→21:24)
[2017-08-09] MEDS: PANTOPRAZOLE 40MG TAB (PROTONIX) PO (21:23)
[2017-08-09] MEDS: ATORVASTATIN 20 MG TAB PO (21:24)
[2017-08-10] MEDS: SODIUM CHLORIDE 0.9% INJ 10 ML SYR IV ×2 (05:06→17:28)
[2017-08-10 05:21] LABS: BASO % 0.1 % (0.0-1.0); EOS % 0.3 % (0.0-3.0); IMMATURE GRANULOCYTE % 0.3 % (0-0); LYMPH # 2.6 10^3/uL (1.5-6.5); LYMPH % 26.5 % (24.0-44.0); MEAN CORPUSCULAR HEMOGLOBIN 27.1 pg (27.0-33.0); MEAN CORPUSCULAR HGB CONC 32.1 g/dl (32.0-36.5); MEAN CORPUSCULAR VOLUME 84.4 fl (80.0-96.0); MONO # 0.5 10^3/uL (0.0-0.8); MONO % 5.2 % (0.0-5.0); NEUTROPHILS # 6.5 10^3/uL (1.8-7.7); NEUTROPHILS % 67.6 % (36.0-66.0); PLATELET COUNT, AUTOMATED 352 10^3/uL (150-450); RED CELL DISTRIBUTION WIDTH 14.9 % (11.5-14.5); WHITE BLOOD COUNT 9.6 10^3/uL (4.0-10.0)
[2017-08-10 05:46] LABS: ALBUMIN 0.9 GM/DL (3.2-5.2); ANION GAP 4 MEQ/L (8-16); BLOOD UREA NITROGEN 15 MG/DL (7-18); CALCIUM LEVEL 7.2 MG/DL (8.5-10.1); CARBON DIOXIDE LEVEL 32 MEQ/L (21-32); CHLORIDE LEVEL 108 MEQ/L (98-107); CREATININE FOR GFR 0.88 MG/DL (0.70-1.30); GLUCOSE, FASTING 86 MG/DL (70-105); PHOSPHORUS LEVEL 3.9 MG/DL (2.5-4.9); POTASSIUM SERUM 3.7 MEQ/L (3.5-5.1); SODIUM LEVEL 144 MEQ/L (136-145); URIC ACID 3.6 MG/DL (3.5-7.2)
[2017-08-10] MEDS: predniSONE 20 MG TAB PO (08:37)
[2017-08-10] MEDS: NEORAL 100 MG CAP (J7502)(C9438) PO ×2 (08:37→21:52)
[2017-08-10] MEDS: APIXABAN 5 MG TAB (ELIQUIS) PO ×2 (08:37→21:52)
[2017-08-10] MEDS: DOCUSATE SODIUM 100 MG CAP PO ×2 (08:37→21:52)
[2017-08-10] MEDS: NYSTATIN 500,000 U/5 ML SUSP UDC SS (08:37)
[2017-08-10] MEDS: FERROUS SULFATE 325MG TAB PO ×2 (08:37→21:52)
[2017-08-10] MEDS: ATORVASTATIN 20 MG TAB PO (21:52)
[2017-08-10] MEDS: PANTOPRAZOLE 40MG TAB (PROTONIX) PO (21:52)
[2017-08-11] MEDS: SODIUM CHLORIDE 0.9% INJ 10 ML SYR IV ×2 (05:48→17:40)
[2017-08-11 05:54] LABS: BASO % 0.1 % (0.0-1.0); EOS % 0.3 % (0.0-3.0); IMMATURE GRANULOCYTE % 0.3 % (0-0); LYMPH # 2.3 10^3/uL (1.5-6.5); LYMPH % 21.8 % (24.0-44.0); MEAN CORPUSCULAR HEMOGLOBIN 27.3 pg (27.0-33.0); MEAN CORPUSCULAR HGB CONC 31.8 g/dl (32.0-36.5); MEAN CORPUSCULAR VOLUME 85.8 fl (80.0-96.0); MONO # 0.6 10^3/uL (0.0-0.8); NEUTROPHILS # 7.5 10^3/uL (1.8-7.7); NEUTROPHILS % 71.5 % (36.0-66.0); PLATELET COUNT, AUTOMATED 353 10^3/uL (150-450); WHITE BLOOD COUNT 10.4 10^3/uL (4.0-10.0)
[2017-08-11 07:26] LABS: ANION GAP 8 MEQ/L (8-16); BLOOD UREA NITROGEN 16 MG/DL (7-18); CALCIUM LEVEL 7.1 MG/DL (8.5-10.1); CARBON DIOXIDE LEVEL 30 MEQ/L (21-32); CHLORIDE LEVEL 109 MEQ/L (98-107); CREATININE FOR GFR 0.73 MG/DL (0.70-1.30); GLUCOSE, FASTING 112 MG/DL (70-105); PHOSPHORUS LEVEL 3.9 MG/DL (2.5-4.9); POTASSIUM SERUM 3.5 MEQ/L (3.5-5.1); SODIUM LEVEL 147 MEQ/L (136-145)
[2017-08-11] MEDS: NYSTATIN 500,000 U/5 ML SUSP UDC SS (08:55)
[2017-08-11] MEDS: BACTRIM 160MG/800MG DS TAB PO (08:56)
[2017-08-11] MEDS: predniSONE 20 MG TAB PO (08:56)
[2017-08-11] MEDS: FERROUS SULFATE 325MG TAB PO ×2 (08:56→21:10)
[2017-08-11] MEDS: DOCUSATE SODIUM 100 MG CAP PO ×2 (08:56→21:10)
[2017-08-11] MEDS: NEORAL 100 MG CAP (J7502)(C9438) PO ×2 (08:56→21:00)
[2017-08-11] MEDS: APIXABAN 5 MG TAB (ELIQUIS) PO ×2 (08:56→21:10)
[2017-08-11] MEDS: POTASSIUM CHLORIDE 10 MEQ SR TABLET PO (08:56)
[2017-08-11] MEDS: ATORVASTATIN 20 MG TAB PO (21:10)
[2017-08-11] MEDS: PANTOPRAZOLE 40MG TAB (PROTONIX) PO (21:10)
[2017-08-12] MEDS: SODIUM CHLORIDE 0.9% INJ 10 ML SYR IV ×2 (05:42→17:43)
[2017-08-12 06:58] LABS: ALBUMIN 1.1 GM/DL (3.2-5.2); ANION GAP 5 MEQ/L (8-16); BLOOD UREA NITROGEN 18 MG/DL (7-18); CALCIUM LEVEL 7.2 MG/DL (8.5-10.1); CARBON DIOXIDE LEVEL 31 MEQ/L (21-32); CHLORIDE LEVEL 110 MEQ/L (98-107); CREATININE FOR GFR 0.83 MG/DL (0.70-1.30); GLUCOSE, FASTING 97 MG/DL (70-105); PHOSPHORUS LEVEL 3.8 MG/DL (2.5-4.9); POTASSIUM SERUM 3.8 MEQ/L (3.5-5.1); SODIUM LEVEL 146 MEQ/L (136-145)
[2017-08-12] MEDS: NEORAL 100 MG CAP (J7502)(C9438) PO ×2 (08:54→21:00)
[2017-08-12] MEDS: APIXABAN 5 MG TAB (ELIQUIS) PO ×2 (08:54→21:07)
[2017-08-12] MEDS: predniSONE 20 MG TAB PO (08:54)
[2017-08-12] MEDS: DOCUSATE SODIUM 100 MG CAP PO ×2 (08:54→21:07)
[2017-08-12] MEDS: NYSTATIN 500,000 U/5 ML SUSP UDC SS (08:54)
[2017-08-12] MEDS: FERROUS SULFATE 325MG TAB PO ×2 (08:54→21:06)
[2017-08-12] MEDS: ATORVASTATIN 20 MG TAB PO (21:07)
[2017-08-12] MEDS: PANTOPRAZOLE 40MG TAB (PROTONIX) PO (21:07)
[2017-08-13] MEDS: SODIUM CHLORIDE 0.9% INJ 10 ML SYR IV ×2 (05:27→17:38)
[2017-08-13 06:43] LABS: ALBUMIN 1.1 GM/DL (3.2-5.2); ANION GAP 6 MEQ/L (8-16); BLOOD UREA NITROGEN 18 MG/DL (7-18); CARBON DIOXIDE LEVEL 32 MEQ/L (21-32); CHLORIDE LEVEL 108 MEQ/L (98-107); CREATININE FOR GFR 0.69 MG/DL (0.70-1.30); GLUCOSE, FASTING 107 MG/DL (70-105); PHOSPHORUS LEVEL 4.1 MG/DL (2.5-4.9); POTASSIUM SERUM 3.5 MEQ/L (3.5-5.1); SODIUM LEVEL 146 MEQ/L (136-145)
[2017-08-13] MEDS: FERROUS SULFATE 325MG TAB PO ×2 (10:05→21:32)
[2017-08-13] MEDS: predniSONE 20 MG TAB PO (10:05)
[2017-08-13] MEDS: NEORAL 100 MG CAP (J7502)(C9438) PO ×2 (10:06→21:32)
[2017-08-13] MEDS: APIXABAN 5 MG TAB (ELIQUIS) PO ×2 (10:06→21:32)
[2017-08-13] MEDS: DOCUSATE SODIUM 100 MG CAP PO ×2 (10:06→21:32)
[2017-08-13] MEDS: BACTRIM 160MG/800MG DS TAB PO (10:06)
[2017-08-13] MEDS: POTASSIUM CHLORIDE 10 MEQ SR TABLET PO (10:41)
[2017-08-13 17:02] LABS: TOTAL VOLUME, URINE 3200 ML
[2017-08-13] MEDS: ATORVASTATIN 20 MG TAB PO (21:32)
[2017-08-13] MEDS: PANTOPRAZOLE 40MG TAB (PROTONIX) PO (21:32)
[2017-08-13] MEDS: LOSARTAN 25 MG TAB PO (21:33)
[2017-08-14 00:10] LABS: CYCLOSPORINE LABCORP 200 ng/mL (100-400)
[2017-08-14] MEDS: SODIUM CHLORIDE 0.9% INJ 10 ML SYR IV ×2 (05:23→18:18)
[2017-08-14 06:36] LABS: ALBUMIN 1.2 GM/DL (3.2-5.2); ANION GAP 7 MEQ/L (8-16); BLOOD UREA NITROGEN 14 MG/DL (7-18); CALCIUM LEVEL 7.1 MG/DL (8.5-10.1); CARBON DIOXIDE LEVEL 32 MEQ/L (21-32); CHLORIDE LEVEL 104 MEQ/L (98-107); CREATININE FOR GFR 0.71 MG/DL (0.70-1.30); GLUCOSE, FASTING 93 MG/DL (70-105); PHOSPHORUS LEVEL 3.9 MG/DL (2.5-4.9); POTASSIUM SERUM 3.4 MEQ/L (3.5-5.1); SODIUM LEVEL 143 MEQ/L (136-145)
[2017-08-14] MEDS: DOCUSATE SODIUM 100 MG CAP PO ×2 (08:48→21:43)
[2017-08-14] MEDS: FERROUS SULFATE 325MG TAB PO ×2 (08:48→21:43)
[2017-08-14] MEDS: APIXABAN 5 MG TAB (ELIQUIS) PO ×2 (08:48→21:43)
[2017-08-14] MEDS: predniSONE 20 MG TAB PO (08:48)
[2017-08-14] MEDS: POTASSIUM CHLORIDE 10 MEQ SR TABLET PO ×2 (08:49→21:43)
[2017-08-14] MEDS: NEORAL 25 MG CAP (J7515) PO ×2 (08:49→21:43)
[2017-08-14] MEDS: PANTOPRAZOLE 40MG TAB (PROTONIX) PO (21:43)
[2017-08-14] MEDS: ATORVASTATIN 20 MG TAB PO (21:43)
[2017-08-14] MEDS: LOSARTAN 25 MG TAB PO (21:44)
[2017-08-15] MEDS: SODIUM CHLORIDE 0.9% INJ 10 ML SYR IV (05:21)
[2017-08-15 05:42] LABS: ALBUMIN 1.3 GM/DL (3.2-5.2); ANION GAP 5 MEQ/L (8-16); BLOOD UREA NITROGEN 15 MG/DL (7-18); CALCIUM LEVEL 7.6 MG/DL (8.5-10.1); CARBON DIOXIDE LEVEL 34 MEQ/L (21-32); CHLORIDE LEVEL 105 MEQ/L (98-107); GLUCOSE, FASTING 91 MG/DL (70-105); PHOSPHORUS LEVEL 4.1 MG/DL (2.5-4.9); POTASSIUM SERUM 3.6 MEQ/L (3.5-5.1); SODIUM LEVEL 144 MEQ/L (136-145)
[2017-08-15] MEDS: predniSONE 20 MG TAB PO (08:19)
[2017-08-15] MEDS: DOCUSATE SODIUM 100 MG CAP PO (08:19)
[2017-08-15] MEDS: FERROUS SULFATE 325MG TAB PO (08:19)
[2017-08-15] MEDS: APIXABAN 5 MG TAB (ELIQUIS) PO (08:19)
[2017-08-15] MEDS: POTASSIUM CHLORIDE 10 MEQ SR TABLET PO (08:19)
[2017-08-15] MEDS: BACTRIM 160MG/800MG DS TAB PO (08:19)
[2017-08-15] MEDS: NEORAL 25 MG CAP (J7515) PO (08:20)
== END 2017-08-15 12:44 | disposition home or self-care (01) | DRG 871 ==
LOC: M PCU 07-31 00:10 → M MSPAV 08-10 17:56 → M ED 06:59 → M ED INP 12:45 → M ICU 18:10
PROC: 02HV33Z Insertion of Infusion Device into Superior Vena Cava, Percutaneous Approach (ICD-10-PCS; principal; 2017-07-23)
PROC: 30233N1 Transfusion of Nonautologous Red Blood Cells into Peripheral Vein, Percutaneous Approach (ICD-10-PCS; 2017-07-23)
DX: A41.9 Sepsis, unspecified organism (principal); I26.99 Other pulmonary embolism without acute cor pulmonale; R65.21 Severe sepsis with septic shock; N04.9 Nephrotic syndrome with unspecified morphologic changes; N17.9 Acute kidney failure, unspecified; E87.2 Acidosis; L03.116 Cellulitis of left lower limb; E87.0 Hyperosmolality and hypernatremia; Z91.19 Patient's noncompliance with other medical treatment and regimen; D64.9 Anemia, unspecified; E88.09 Other disorders of plasma-protein metabolism, not elsewhere classified; E78.5 Hyperlipidemia, unspecified; F17.210 Nicotine dependence, cigarettes, uncomplicated; Z79.899 Other long term (current) drug therapy; E83.51 Hypocalcemia; Z79.52 Long term (current) use of systemic steroids; N50.89 Other specified disorders of the male genital organs; E87.6 Hypokalemia

== ENCOUNTER → 2017-08-25 | Outpatient (REF) | payer OTHER ==
[2017-08-25 18:45] LABS: TOTAL PROTEIN,RANDOM URINE 16.9 MG/DL (0.0-12.0)
[2017-08-28 10:13] LABS: CYCLOSPORINE LABCORP 76 ng/mL (100-400)
== END ==
LOC: M LAB REF 17:06
DX: Z51.81 Encounter for therapeutic drug level monitoring (principal); N04.0 Nephrotic syndrome with minor glomerular abnormality; R80.9 Proteinuria, unspecified

== ENCOUNTER → 2017-09-30 | Outpatient (REF) | payer OTHER ==
[2017-09-30 14:10] LABS: TOTAL PROTEIN,RANDOM URINE 22.1 MG/DL (0.0-12.0)
[2017-10-02 10:13] LABS: CYCLOSPORINE LABCORP 60 ng/mL (100-400)
== END ==
LOC: M LAB REF 13:29
DX: Z51.81 Encounter for therapeutic drug level monitoring (principal); N04.0 Nephrotic syndrome with minor glomerular abnormality; R80.9 Proteinuria, unspecified
CPT/HCPCS: 80158

== ENCOUNTER → 2017-10-27 | Outpatient (REF) | payer OTHER ==
[2017-10-27 18:00] LABS: TOTAL PROTEIN,RANDOM URINE 14.6 MG/DL (0.0-12.0)
[2017-10-27 18:02] LABS: CHOLESTEROL LEVEL 219 MG/DL (<200); CHOLESTEROL RISK RATIO 2.959 (<5); HDL CHOLESTEROL 74 MG/DL (>40); LDL CHOLESTEROL 134.6 MG/DL (<100); NON-HDL-C 145 MG/DL; TRIGLYCERIDES LEVEL 52 MG/DL (<150)
== END ==
LOC: M LAB REF 16:48
DX: Z51.81 Encounter for therapeutic drug level monitoring (principal); N04.0 Nephrotic syndrome with minor glomerular abnormality; R80.9 Proteinuria, unspecified; E78.5 Hyperlipidemia, unspecified

== ENCOUNTER → 2017-12-24 | Outpatient (REF) | payer OTHER ==
[2017-12-24 19:17] LABS: TOTAL PROTEIN,RANDOM URINE 24.5 MG/DL (0.0-12.0)
== END ==
LOC: M LAB REF 17:08
DX: Z51.81 Encounter for therapeutic drug level monitoring (principal); N04.0 Nephrotic syndrome with minor glomerular abnormality; R80.9 Proteinuria, unspecified

== ENCOUNTER → 2018-02-10 | Outpatient (REF) | payer OTHER ==
[2018-02-10 13:30] LABS: TOTAL PROTEIN,RANDOM URINE 234.2 MG/DL (0.0-12.0)
[2018-02-13 15:02] LABS: CYCLOSPORINE LABCORP 523 ng/mL (100-400)
== END ==
LOC: M LAB REF 12:54
DX: Z51.81 Encounter for therapeutic drug level monitoring (principal); N04.0 Nephrotic syndrome with minor glomerular abnormality; R80.9 Proteinuria, unspecified

== ENCOUNTER → 2018-02-11 | Outpatient (REF) | payer OTHER ==
[2018-02-11 18:28] LABS: URINE TOTAL PROTEIN 90.7 MG/DL (0-12)
[2018-02-11 20:57] LABS: TOTAL PROTEIN 24 HOUR URINE 952.3 MG/24HR (50-150); TOTAL VOLUME, URINE 1050 ML
== END ==
LOC: M LAB REF 17:04
DX: N04.0 Nephrotic syndrome with minor glomerular abnormality (principal); R80.9 Proteinuria, unspecified
CPT/HCPCS: 81050

== ENCOUNTER → 2018-02-17 | Outpatient (REF) | payer OTHER ==
[2018-02-17 13:21] LABS: TOTAL PROTEIN,RANDOM URINE 59.4 MG/DL (0.0-12.0)
[2018-02-20 14:19] LABS: CYCLOSPORINE LABCORP 41 ng/mL (100-400)
== END ==
LOC: M LAB REF 12:50
DX: Z51.81 Encounter for therapeutic drug level monitoring (principal); Z79.899 Other long term (current) drug therapy; N04.0 Nephrotic syndrome with minor glomerular abnormality; R80.9 Proteinuria, unspecified
CPT/HCPCS: 80158

== ENCOUNTER → 2018-03-18 | Outpatient (REF) | payer OTHER ==
[2018-03-18 13:53] LABS: TOTAL PROTEIN,RANDOM URINE 103.3 MG/DL (0.0-12.0)
[2018-03-21 14:10] LABS: CYCLOSPORINE LABCORP 69 ng/mL (100-400)
== END ==
LOC: M LAB REF 13:05
DX: Z51.81 Encounter for therapeutic drug level monitoring (principal); Z79.899 Other long term (current) drug therapy; N04.0 Nephrotic syndrome with minor glomerular abnormality; R80.9 Proteinuria, unspecified

== ENCOUNTER → 2018-04-28 | Outpatient (REF) | payer OTHER ==
[2018-04-28 14:42] LABS: CHOLESTEROL LEVEL 572 MG/DL (<200); CHOLESTEROL RISK RATIO 4.612 (<5); HDL CHOLESTEROL 124 MG/DL (>40); LDL CHOLESTEROL 419 MG/DL (<100); NON-HDL-C 448 MG/DL; TRIGLYCERIDES LEVEL 145 MG/DL (<150)
[2018-04-28 14:52] LABS: TOTAL PROTEIN,RANDOM URINE 171.3 MG/DL (0.0-12.0)
[2018-05-01 00:07] LABS: CYCLOSPORINE LABCORP 52 ng/mL (100-400)
== END ==
LOC: M LAB REF 13:19
DX: Z51.81 Encounter for therapeutic drug level monitoring (principal); Z79.899 Other long term (current) drug therapy; N04.0 Nephrotic syndrome with minor glomerular abnormality; E78.5 Hyperlipidemia, unspecified; R80.9 Proteinuria, unspecified
CPT/HCPCS: 80061

== ENCOUNTER → 2018-05-04 | Outpatient (REF) | payer OTHER ==
[2018-05-04 18:28] LABS: TOTAL PROTEIN,RANDOM URINE 170.1 MG/DL (0.0-12.0)
== END ==
LOC: M LAB REF 17:12
DX: N04.0 Nephrotic syndrome with minor glomerular abnormality (principal); R80.9 Proteinuria, unspecified
CPT/HCPCS: 84156

== ENCOUNTER → 2018-05-11 | Outpatient (REF) | payer OTHER ==
[2018-05-11 18:56] LABS: TOTAL VOLUME, URINE 1850 ML
[2018-05-11 19:03] LABS: TOTAL PROTEIN,RANDOM URINE 103.1 MG/DL (0.0-12.0)
[2018-05-11 19:08] LABS: CREATININE 24 HOUR, URINE 1283.9 MG/24HR (950-2500); CREATININE, URINE 69.4 MG/DL; TOTAL PROTEIN 24 HOUR URINE 1198.8 MG/24HR (50-150); URINE TOTAL PROTEIN 64.8 MG/DL (0-12)
== END ==
LOC: M LAB REF 16:58
DX: N04.0 Nephrotic syndrome with minor glomerular abnormality (principal); Z51.81 Encounter for therapeutic drug level monitoring; R80.9 Proteinuria, unspecified

== ENCOUNTER → 2018-05-22 | Outpatient (REF) | payer OTHER ==
[2018-05-22 18:59] LABS: TOTAL PROTEIN,RANDOM URINE 178.1 MG/DL (0.0-12.0)
[2018-05-26 00:07] LABS: CYCLOSPORINE LABCORP 223 ng/mL (100-400)
== END ==
LOC: M LAB REF 17:28
DX: Z51.81 Encounter for therapeutic drug level monitoring (principal); N04.0 Nephrotic syndrome with minor glomerular abnormality; R80.9 Proteinuria, unspecified

== ENCOUNTER → 2018-06-29 | Outpatient (REF) | payer OTHER ==
[2018-06-29 19:03] LABS: CHOLESTEROL LEVEL 374 MG/DL (<200); CHOLESTEROL RISK RATIO 3.561 (<5); HDL CHOLESTEROL 105 MG/DL (>40); LDL CHOLESTEROL 244 MG/DL (<100); NON-HDL-C 269 MG/DL; TRIGLYCERIDES LEVEL 126 MG/DL (<150)
[2018-06-29 19:24] LABS: TOTAL PROTEIN,RANDOM URINE 95.5 MG/DL (0.0-12.0)
== END ==
LOC: M LAB REF 17:40
DX: N04.0 Nephrotic syndrome with minor glomerular abnormality (principal); E78.5 Hyperlipidemia, unspecified; R80.9 Proteinuria, unspecified